=== PATIENT | female | born 1930 | race Caucasian/White ===

== ENCOUNTER → 2016-05-13 | Outpatient (CLI) | payer MEDICARE, BC ==
[2016-05-13 10:28] LABS: MEAN CORPUSCULAR HEMOGLOBIN 31.4 pg (27.0-33.0); MEAN CORPUSCULAR HGB CONC 32.5 g/dl (32.0-36.5); MEAN CORPUSCULAR VOLUME 96.6 fl (80.0-96.0); RED CELL DISTRIBUTION WIDTH 14.6 % (11.5-14.5); WHITE BLOOD COUNT 7.3 K/mm3 (4.0-10.0)
[2016-05-13 10:56] LABS: ALBUMIN 3.6 GM/DL (3.2-5.2); ALBUMIN/GLOBULIN RATIO 0.97 (1.00-1.93); ALKALINE PHOSPHATASE 61 U/L (45-117); ALT/SGPT 22 U/L (12-78); ANION GAP 5 MEQ/L (8-16); AST/SGOT 19 U/L (15-37); BILIRUBIN,TOTAL 0.4 MG/DL (0.2-1.0); BLOOD UREA NITROGEN 21 MG/DL (7-18); CALCIUM LEVEL 9.1 MG/DL (8.8-10.2); CARBON DIOXIDE LEVEL 34 MEQ/L (21-32); CHLORIDE LEVEL 101 MEQ/L (98-107); CREATININE FOR GFR 0.69 MG/DL (0.55-1.02); GLOMERULAR FILTRATION RATE > 60.0 (>32); GLUCOSE, FASTING 97 MG/DL (83-110); POTASSIUM SERUM 4.3 MEQ/L (3.5-5.1); SODIUM LEVEL 140 MEQ/L (136-145); TOTAL PROTEIN 7.3 GM/DL (6.4-8.2)
== END ==
LOC: M LAB 09:55
PROVIDERS: ATTEND Internal Medicine
DX: R53.83 Other fatigue (principal); M05.79 Rheumatoid arthritis with rheumatoid factor of multiple sites without organ or systems involvement; Z79.899 Other long term (current) drug therapy

== ENCOUNTER → 2016-05-13 | Outpatient (CLI) | payer MEDICARE, BC ==
[2016-05-13 10:28] LABS: BASO % 0.6 % (0.0-1.0); EOS # 0.3 K/mm3 (0.0-0.50); EOS % 4.2 % (0.0-3.0); LARGE UNSTAINED CELL # 0.3 K/mm3 (0.0-0.4); LARGE UNSTAINED CELL % 3.4 % (0.0-4.0); MEAN CORPUSCULAR HEMOGLOBIN 30.5 pg (27.0-33.0); MEAN CORPUSCULAR HGB CONC 31.6 g/dl (32.0-36.5); MEAN CORPUSCULAR VOLUME 96.6 fl (80.0-96.0); MONO # 0.6 K/mm3 (0.0-0.8); NEUTROPHILS # 4.2 K/mm3 (1.8-7.7); NEUTROPHILS % 56.9 % (36.0-66.0); PLATELET COUNT, AUTOMATED 222 k/mm3 (150-450); RED CELL DISTRIBUTION WIDTH 14.5 % (11.5-14.5); WHITE BLOOD COUNT 7.3 K/mm3 (4.0-10.0)
[2016-05-13 10:45] LABS: ALBUMIN 3.4 GM/DL (3.2-5.2); ALT/SGPT 22 U/L (12-78); CREATININE FOR GFR 0.71 MG/DL (0.55-1.02); GLOMERULAR FILTRATION RATE > 60.0 (>32)
== END ==
LOC: M LAB 09:59
PROVIDERS: ATTEND Internal Medicine Rheumatology
DX: M05.79 Rheumatoid arthritis with rheumatoid factor of multiple sites without organ or systems involvement (principal); Z79.899 Other long term (current) drug therapy

== ENCOUNTER → 2016-06-14 | Outpatient (CLI) | payer MEDICARE, BC | LOC: M LRY 09:57 | PROVIDERS: ATTEND Nurse Practitioner Family | DX: D64.9 Anemia, unspecified (principal); E53.9 Vitamin B deficiency, unspecified ==

== ENCOUNTER → 2016-07-14 | Outpatient (CLI) | payer MEDICARE, BC ==
[2016-07-14 17:22] LABS: BASO % 0.4 % (0.0-1.0); EOS # 0.4 K/mm3 (0.0-0.50); EOS % 5.5 % (0.0-3.0); LARGE UNSTAINED CELL # 0.2 K/mm3 (0.0-0.4); LYMPH # 2.3 K/mm3 (1.5-4.5); MEAN CORPUSCULAR HGB CONC 32.1 g/dl (32.0-36.5); MEAN CORPUSCULAR VOLUME 99.5 fl (80.0-96.0); MONO # 0.5 K/mm3 (0.0-0.8); NEUTROPHILS # 4.1 K/mm3 (1.8-7.7); PLATELET COUNT, AUTOMATED 233 k/mm3 (150-450); RED CELL DISTRIBUTION WIDTH 15.3 % (11.5-14.5); WHITE BLOOD COUNT 7.5 K/mm3 (4.0-10.0)
[2016-07-14 19:18] LABS: ALBUMIN 3.5 GM/DL (3.2-5.2); ALT/SGPT 25 U/L (12-78); CREATININE FOR GFR 0.79 MG/DL (0.55-1.02); GLOMERULAR FILTRATION RATE > 60.0 (>32)
== END ==
LOC: M LRY 11:50
PROVIDERS: ATTEND Internal Medicine Rheumatology
DX: M05.79 Rheumatoid arthritis with rheumatoid factor of multiple sites without organ or systems involvement (principal); Z79.899 Other long term (current) drug therapy

== ENCOUNTER → 2016-07-30 | Outpatient (CLI) | payer MEDICARE, BC | LOC: M LRY 09:57 | PROVIDERS: ATTEND Internal Medicine Rheumatology | DX: M05.79 Rheumatoid arthritis with rheumatoid factor of multiple sites without organ or systems involvement (principal); Z79.899 Other long term (current) drug therapy ==

== ENCOUNTER → 2016-09-02 | Outpatient (CLI) | payer MEDICARE, BC ==
[2016-09-02 12:01] LABS: BASO % 0.5 % (0.0-1.0); EOS # 0.4 K/mm3 (0.0-0.50); EOS % 4.8 % (0.0-3.0); LARGE UNSTAINED CELL # 0.1 K/mm3 (0.0-0.4); LARGE UNSTAINED CELL % 1.5 % (0.0-4.0); LYMPH # 1.8 K/mm3 (1.5-4.5); LYMPH % 22.1 % (24.0-44.0); MEAN CORPUSCULAR HEMOGLOBIN 32.5 pg (27.0-33.0); MEAN CORPUSCULAR HGB CONC 32.9 g/dl (32.0-36.5); MEAN CORPUSCULAR VOLUME 98.5 fl (80.0-96.0); MONO # 0.5 K/mm3 (0.0-0.8); MONO % 6.5 % (0.0-5.0); NEUTROPHILS % 64.6 % (36.0-66.0); PLATELET COUNT, AUTOMATED 193 k/mm3 (150-450); RED CELL DISTRIBUTION WIDTH 15.1 % (11.5-14.5); WHITE BLOOD COUNT 7.7 K/mm3 (4.0-10.0)
[2016-09-02 12:22] LABS: ALBUMIN 3.4 GM/DL (3.2-5.2); ALT/SGPT 23 U/L (12-78); CREATININE FOR GFR 0.67 MG/DL (0.55-1.02); GLOMERULAR FILTRATION RATE > 60.0 (>32)
== END ==
LOC: M LRY 09:47
PROVIDERS: ATTEND Internal Medicine Rheumatology
DX: M05.79 Rheumatoid arthritis with rheumatoid factor of multiple sites without organ or systems involvement (principal); Z51.81 Encounter for therapeutic drug level monitoring; Z79.899 Other long term (current) drug therapy

== ENCOUNTER → 2016-09-02 | Outpatient (CLI) | payer MEDICARE, BC ==
[2016-09-02 12:38] LABS: VITAMIN B12 LEVEL 865 PG/ML (247-911)
[2016-09-02 12:58] LABS: ALBUMIN 3.2 GM/DL (3.2-5.2); ALBUMIN/GLOBULIN RATIO 0.86 (1.00-1.93); ALKALINE PHOSPHATASE 56 U/L (45-117); ALT/SGPT 22 U/L (12-78); ANION GAP 8 MEQ/L (8-16); AST/SGOT 14 U/L (15-37); BILIRUBIN,TOTAL 0.4 MG/DL (0.2-1.0); BLOOD UREA NITROGEN 23 MG/DL (7-18); CALCIUM LEVEL 9.2 MG/DL (8.8-10.2); CARBON DIOXIDE LEVEL 31 MEQ/L (21-32); CHLORIDE LEVEL 103 MEQ/L (98-107); CHOLESTEROL LEVEL 193 MG/DL (<200); CREATININE FOR GFR 0.67 MG/DL (0.55-1.02); GLOMERULAR FILTRATION RATE > 60.0 (>32); GLUCOSE, FASTING 84 MG/DL (83-110); POTASSIUM SERUM 4.5 MEQ/L (3.5-5.1); SODIUM LEVEL 142 MEQ/L (136-145); TOTAL PROTEIN 6.9 GM/DL (6.4-8.2); TRIGLYCERIDES LEVEL 109 MG/DL (<150)
[2016-09-02 21:41] LABS: MEAN CORPUSCULAR HEMOGLOBIN 31.9 pg (27.0-33.0); MEAN CORPUSCULAR HGB CONC 32.1 g/dl (32.0-36.5); MEAN CORPUSCULAR VOLUME 99.3 fl (80.0-96.0); RED CELL DISTRIBUTION WIDTH 15.1 % (11.5-14.5); WHITE BLOOD COUNT 7.6 K/mm3 (4.0-10.0)
== END ==
LOC: M LRY 09:42
PROVIDERS: ATTEND Nurse Practitioner Family
DX: E55.9 Vitamin D deficiency, unspecified (principal); I10 Essential (primary) hypertension; D50.9 Iron deficiency anemia, unspecified; D51.9 Vitamin B12 deficiency anemia, unspecified; E78.00 Pure hypercholesterolemia, unspecified; M05.79 Rheumatoid arthritis with rheumatoid factor of multiple sites without organ or systems involvement; Z51.81 Encounter for therapeutic drug level monitoring; Z79.899 Other long term (current) drug therapy

== ENCOUNTER → 2016-11-04 | Outpatient (CLI) | payer MEDICARE, BC ==
--- NOTE | 2016-11-04 10:25 | REP ---
PA and lateral chest: Comparison is 2016. The lung resendez are clear. The cardiac size is normal The estuardo, mediastinum, and bony thorax are unremarkable. Impression: Negative PA and lateral chest. Signed by Pacheco Charles MD 11/04/2016 10:16 A
== END ==
LOC: M LRY 09:45
PROVIDERS: ATTEND Nurse Practitioner Family
DX: J18.9 Pneumonia, unspecified organism (principal)

== ENCOUNTER → 2016-11-11 | Outpatient (CLI) | payer MEDICARE, BC ==
[2016-11-11 11:52] LABS: BASO % 0.5 % (0.0-1.0); EOS # 0.4 K/mm3 (0.0-0.50); EOS % 5.4 % (0.0-3.0); LARGE UNSTAINED CELL # 0.2 K/mm3 (0.0-0.4); LYMPH # 1.8 K/mm3 (1.5-4.5); LYMPH % 20.4 % (24.0-44.0); MEAN CORPUSCULAR HEMOGLOBIN 32.2 pg (27.0-33.0); MEAN CORPUSCULAR HGB CONC 32.7 g/dl (32.0-36.5); MEAN CORPUSCULAR VOLUME 98.5 fl (80.0-96.0); MONO # 0.6 K/mm3 (0.0-0.8); MONO % 7.2 % (0.0-5.0); NEUTROPHILS # 5.2 K/mm3 (1.8-7.7); NEUTROPHILS % 64.6 % (36.0-66.0); PLATELET COUNT, AUTOMATED 222 k/mm3 (150-450); RED CELL DISTRIBUTION WIDTH 14.9 % (11.5-14.5); WHITE BLOOD COUNT 8.1 K/mm3 (4.0-10.0)
[2016-11-11 12:21] LABS: ALBUMIN 3.4 GM/DL (3.2-5.2); CREATININE FOR GFR 0.64 MG/DL (0.55-1.02); GLOMERULAR FILTRATION RATE > 60.0 (>32)
== END ==
LOC: M LRY 09:41
PROVIDERS: ATTEND Internal Medicine Rheumatology
DX: M05.79 Rheumatoid arthritis with rheumatoid factor of multiple sites without organ or systems involvement (principal); Z79.899 Other long term (current) drug therapy

== ENCOUNTER → 2017-01-13 | Outpatient (CLI) | payer MEDICARE, BC ==
[2017-01-13 14:25] LABS: BASO # 0.1 10^3/uL (0.0-0.2); BASO % 0.6 % (0.0-1.0); EOS # 0.3 10^3/uL (0.0-0.50); EOS % 3.7 % (0.0-3.0); IMMATURE GRANULOCYTE % 0.5 % (0-0); LYMPH # 1.8 10^3/uL (1.5-4.5); LYMPH % 21.4 % (24.0-44.0); MEAN CORPUSCULAR HEMOGLOBIN 30.7 pg (27.0-33.0); MEAN CORPUSCULAR HGB CONC 31.3 g/dl (32.0-36.5); MEAN CORPUSCULAR VOLUME 97.9 fl (80.0-96.0); MONO # 0.8 10^3/uL (0.0-0.8); MONO % 9.7 % (0.0-5.0); NEUTROPHILS # 5.4 10^3/uL (1.8-7.7); NEUTROPHILS % 64.1 % (36.0-66.0); PLATELET COUNT, AUTOMATED 311 10^3/uL (150-450); RED CELL DISTRIBUTION WIDTH 14.6 % (11.5-14.5); WHITE BLOOD COUNT 8.4 10^3/uL (4.0-10.0)
[2017-01-13 14:47] LABS: ALBUMIN 3.3 GM/DL (3.2-5.2); ALT/SGPT 20 U/L (12-78); CREATININE FOR GFR 0.76 MG/DL (0.55-1.02); GLOMERULAR FILTRATION RATE > 60.0 (>32)
== END ==
LOC: M LRY 09:52
PROVIDERS: ATTEND Internal Medicine Rheumatology
DX: M05.79 Rheumatoid arthritis with rheumatoid factor of multiple sites without organ or systems involvement (principal); E55.9 Vitamin D deficiency, unspecified; Z79.899 Other long term (current) drug therapy

== ENCOUNTER → 2017-02-17 | Outpatient (CLI) | payer MEDICARE, BC ==
[2017-02-17 11:31] LABS: BASO % 0.3 % (0.0-1.0); EOS # 0.2 10^3/uL (0.0-0.50); EOS % 1.3 % (0.0-3.0); IMMATURE GRANULOCYTE % 0.4 % (0-0); LYMPH # 2.1 10^3/uL (1.5-4.5); LYMPH % 18.8 % (24.0-44.0); MEAN CORPUSCULAR HEMOGLOBIN 30.9 pg (27.0-33.0); MEAN CORPUSCULAR HGB CONC 32.1 g/dl (32.0-36.5); MONO # 0.9 10^3/uL (0.0-0.8); MONO % 8.1 % (0.0-5.0); NEUTROPHILS % 71.1 % (36.0-66.0); PLATELET COUNT, AUTOMATED 304 10^3/uL (150-450); RED CELL DISTRIBUTION WIDTH 15.1 % (11.5-14.5); WHITE BLOOD COUNT 11.3 10^3/uL (4.0-10.0)
[2017-02-17 11:55] LABS: ALBUMIN 3.3 GM/DL (3.2-5.2); ALT/SGPT 18 U/L (12-78); CREATININE FOR GFR 0.66 MG/DL (0.55-1.02); GLOMERULAR FILTRATION RATE > 60.0 (>32)
== END ==
LOC: M LRY 09:09
PROVIDERS: ATTEND Internal Medicine Rheumatology
DX: M05.79 Rheumatoid arthritis with rheumatoid factor of multiple sites without organ or systems involvement (principal); Z79.899 Other long term (current) drug therapy

== ENCOUNTER → 2017-02-24 | Outpatient (CLI) | payer MEDICARE, BC ==
[2017-02-24 12:26] LABS: MEAN CORPUSCULAR HEMOGLOBIN 30.8 pg (27.0-33.0); MEAN CORPUSCULAR HGB CONC 32.6 g/dl (32.0-36.5); MEAN CORPUSCULAR VOLUME 94.7 fl (80.0-96.0); PLATELET COUNT, AUTOMATED 266 10^3/uL (150-450); RED CELL DISTRIBUTION WIDTH 15.1 % (11.5-14.5); WHITE BLOOD COUNT 11.3 10^3/uL (4.0-10.0)
[2017-02-24 12:56] LABS: ALBUMIN 3.3 GM/DL (3.2-5.2); ALKALINE PHOSPHATASE 67 U/L (45-117); ALT/SGPT 21 U/L (12-78); ANION GAP 7 MEQ/L (8-16); AST/SGOT 13 U/L (7-37); BILIRUBIN,TOTAL 0.4 MG/DL (0.2-1.0); BLOOD UREA NITROGEN 24 MG/DL (7-18); CALCIUM LEVEL 8.9 MG/DL (8.8-10.2); CARBON DIOXIDE LEVEL 29 MEQ/L (21-32); CHLORIDE LEVEL 104 MEQ/L (98-107); CHOLESTEROL LEVEL 200 MG/DL (<200); CREATININE FOR GFR 0.69 MG/DL (0.55-1.02); FREE T4 1.04 NG/DL (0.76-1.46); GLOMERULAR FILTRATION RATE > 60.0 (>32); GLUCOSE, FASTING 108 MG/DL (83-110); POTASSIUM SERUM 4.2 MEQ/L (3.5-5.1); SODIUM LEVEL 140 MEQ/L (136-145); TOTAL PROTEIN 7.4 GM/DL (6.4-8.2); TRIGLYCERIDES LEVEL 66 MG/DL (<150)
== END ==
LOC: M LRY 09:13
PROVIDERS: ATTEND Internal Medicine Cardiovascular Disease
DX: E78.5 Hyperlipidemia, unspecified (principal); I10 Essential (primary) hypertension; E03.9 Hypothyroidism, unspecified; R73.9 Hyperglycemia, unspecified; E55.9 Vitamin D deficiency, unspecified

== ENCOUNTER → 2017-04-13 | Outpatient (CLI) | payer MEDICARE, BC ==
[2017-04-13 12:00] LABS: BASO # 0.1 10^3/uL (0.0-0.2); BASO % 0.6 % (0.0-1.0); EOS # 0.2 10^3/uL (0.0-0.50); EOS % 2.5 % (0.0-3.0); HEMATOCRIT 38.6 % (36.0-47.0); HEMOGLOBIN 12.3 g/dl (12.0-16.0); IMMATURE GRANULOCYTE % 0.4 % (0-0); LYMPH # 1.8 10^3/uL (1.5-4.5); LYMPH % 20.3 % (24.0-44.0); MEAN CORPUSCULAR HEMOGLOBIN 30.6 pg (27.0-33.0); MEAN CORPUSCULAR HGB CONC 31.9 g/dl (32.0-36.5); MONO # 0.8 10^3/uL (0.0-0.8); MONO % 8.6 % (0.0-5.0); NEUTROPHILS # 6.1 10^3/uL (1.8-7.7); NEUTROPHILS % 67.6 % (36.0-66.0); PLATELET COUNT, AUTOMATED 237 10^3/uL (150-450); RED BLOOD COUNT 4.02 10^6/uL (4.00-5.40); RED CELL DISTRIBUTION WIDTH 15.7 % (11.5-14.5)
[2017-04-13 12:07] LABS: ALBUMIN 3.4 GM/DL (3.2-5.2); ALT/SGPT 22 U/L (12-78); CREATININE FOR GFR 0.68 MG/DL (0.55-1.02); GLOMERULAR FILTRATION RATE > 60.0 (>32)
== END ==
LOC: M LRY 09:18
DX: M05.79 Rheumatoid arthritis with rheumatoid factor of multiple sites without organ or systems involvement (principal); Z79.899 Other long term (current) drug therapy
CPT/HCPCS: 84460

== ENCOUNTER → 2017-05-26 | Outpatient (CLI) | payer MEDICARE, BC ==
[2017-05-26 12:11] LABS: BASO % 0.4 % (0.0-1.0); EOS # 0.3 10^3/uL (0.0-0.50); EOS % 2.6 % (0.0-3.0); HEMATOCRIT 37.4 % (36.0-47.0); HEMOGLOBIN 12.1 g/dl (12.0-16.0); IMMATURE GRANULOCYTE % 0.4 % (0-3.0); LYMPH # 1.8 10^3/uL (1.5-4.5); LYMPH % 18.3 % (24.0-44.0); MEAN CORPUSCULAR HEMOGLOBIN 31.7 pg (27.0-33.0); MEAN CORPUSCULAR HGB CONC 32.4 g/dl (32.0-36.5); MEAN CORPUSCULAR VOLUME 97.9 fl (80.0-96.0); MONO # 0.7 10^3/uL (0.0-0.8); MONO % 7.1 % (0.0-5.0); NEUTROPHILS # 6.9 10^3/uL (1.8-7.7); NEUTROPHILS % 71.2 % (36.0-66.0); PLATELET COUNT, AUTOMATED 237 10^3/uL (150-450); RED BLOOD COUNT 3.82 10^6/uL (4.00-5.40); WHITE BLOOD COUNT 9.7 10^3/uL (4.0-10.0)
[2017-05-26 12:12] LABS: ALBUMIN 3.3 GM/DL (3.2-5.2); ALT/SGPT 20 U/L (12-78); CREATININE FOR GFR 0.69 MG/DL (0.55-1.30); GLOMERULAR FILTRATION RATE > 60.0 (>32)
== END ==
LOC: M LRY 09:05
DX: M05.79 Rheumatoid arthritis with rheumatoid factor of multiple sites without organ or systems involvement (principal); Z79.899 Other long term (current) drug therapy
CPT/HCPCS: 84460

== ENCOUNTER → 2017-08-11 | Outpatient (CLI) | payer MEDICARE, BC ==
[2017-08-11 11:19] LABS: BASO % 0.5 % (0.0-1.0); EOS # 0.2 10^3/uL (0.0-0.50); EOS % 2.9 % (0.0-3.0); HEMATOCRIT 37.8 % (36.0-47.0); HEMOGLOBIN 12.3 g/dl (12.0-15.5); IMMATURE GRANULOCYTE % 0.5 % (0-3.0); LYMPH # 1.5 10^3/uL (1.5-4.5); LYMPH % 19.2 % (24.0-44.0); MEAN CORPUSCULAR HEMOGLOBIN 31.6 pg (27.0-33.0); MEAN CORPUSCULAR HGB CONC 32.5 g/dl (32.0-36.5); MEAN CORPUSCULAR VOLUME 97.2 fl (80.0-96.0); MONO % 12.5 % (0.0-5.0); NEUTROPHILS # 5.2 10^3/uL (1.8-7.7); NEUTROPHILS % 64.4 % (36.0-66.0); PLATELET COUNT, AUTOMATED 225 10^3/uL (150-450); RED BLOOD COUNT 3.89 10^6/uL (4.00-5.40); RED CELL DISTRIBUTION WIDTH 14.8 % (11.5-14.5)
[2017-08-11 11:43] LABS: ALBUMIN 3.4 GM/DL (3.2-5.2); ALBUMIN/GLOBULIN RATIO 0.85 (1.00-1.93); ALKALINE PHOSPHATASE 71 U/L (45-117); ALT/SGPT 23 U/L (12-78); ANION GAP 5 MEQ/L (8-16); AST/SGOT 22 U/L (7-37); BILIRUBIN,TOTAL 0.4 MG/DL (0.2-1.0); BLOOD UREA NITROGEN 26 MG/DL (7-18); C REACTIVE PROTEIN QUANTITATIV 0.48 MG/DL (0.00-0.30); CALCIUM LEVEL 9.1 MG/DL (8.8-10.2); CARBON DIOXIDE LEVEL 30 MEQ/L (21-32); CHLORIDE LEVEL 103 MEQ/L (98-107); CREATININE FOR GFR 0.75 MG/DL (0.55-1.30); GLOMERULAR FILTRATION RATE > 60.0 (>32); GLUCOSE, FASTING 105 MG/DL (70-100); POTASSIUM SERUM 4.4 MEQ/L (3.5-5.1); SODIUM LEVEL 138 MEQ/L (136-145); TOTAL PROTEIN 7.4 GM/DL (6.4-8.2)
== END ==
LOC: M LRY 09:17
DX: M05.79 Rheumatoid arthritis with rheumatoid factor of multiple sites without organ or systems involvement (principal)
CPT/HCPCS: 80053

== ENCOUNTER 2017-10-21 17:31 | Emergency (ER) | payer MEDICARE, BC ==
[2017-10-21 18:25] LABS: BASO % 0.3 % (0.0-1.0); EOS # 0.2 10^3/uL (0.0-0.50); HEMATOCRIT 36.5 % (36.0-47.0); HEMOGLOBIN 11.5 g/dl (12.0-15.5); IMMATURE GRANULOCYTE % 0.4 % (0-3.0); LYMPH # 1.7 10^3/uL (1.5-4.5); LYMPH % 18.4 % (24.0-44.0); MEAN CORPUSCULAR HEMOGLOBIN 31.1 pg (27.0-33.0); MEAN CORPUSCULAR HGB CONC 31.5 g/dl (32.0-36.5); MEAN CORPUSCULAR VOLUME 98.6 fl (80.0-96.0); MONO # 0.8 10^3/uL (0.0-0.8); MONO % 8.2 % (0.0-5.0); NEUTROPHILS # 6.7 10^3/uL (1.8-7.7); NEUTROPHILS % 70.7 % (36.0-66.0); PLATELET COUNT, AUTOMATED 243 10^3/uL (150-450); RED CELL DISTRIBUTION WIDTH 15.5 % (11.5-14.5); WHITE BLOOD COUNT 9.5 10^3/uL (4.0-10.0)
[2017-10-21 18:37] LABS: ANION GAP 7 MEQ/L (8-16); BLOOD UREA NITROGEN 23 MG/DL (7-18); CALCIUM LEVEL 8.6 MG/DL (8.8-10.2); CARBON DIOXIDE LEVEL 31 MEQ/L (21-32); CHLORIDE LEVEL 105 MEQ/L (98-107); CPK CREATINE PHOSPHOKINASE 61 U/L (26-192); CREATININE FOR GFR 0.92 MG/DL (0.55-1.30); GLOMERULAR FILTRATION RATE > 60.0 (>32); GLUCOSE, FASTING 109 MG/DL (70-100); POTASSIUM SERUM 4.3 MEQ/L (3.5-5.1); SODIUM LEVEL 143 MEQ/L (136-145); TROPONIN I < 0.02 NG/ML (< 0.10)
[2017-10-21 18:43] LABS: CK-MB VALUE MASS 1.5 NG/ML (<3.6); MB/CK RELATIVE INDEX 2.45 (< OR =4)
== END 2017-10-21 21:42 | disposition home or self-care (01) ==
LOC: M ED 17:31
DX: R42 Dizziness and giddiness (principal); I48.91 Unspecified atrial fibrillation; I51.7 Cardiomegaly; G31.9 Degenerative disease of nervous system, unspecified; E11.9 Type 2 diabetes mellitus without complications; I10 Essential (primary) hypertension; M06.9 Rheumatoid arthritis, unspecified; Z87.891 Personal history of nicotine dependence; Z79.01 Long term (current) use of anticoagulants; Z79.899 Other long term (current) drug therapy
CPT/HCPCS: 71045

== ENCOUNTER → 2017-12-02 | Outpatient (REF) | payer MEDICARE, BC ==
[2017-12-02 15:13] LABS: C REACTIVE PROTEIN QUANTITATIV 0.38 MG/DL (0.00-0.30)
== END ==
LOC: M LAB REF 13:14
DX: M06.9 Rheumatoid arthritis, unspecified (principal)
CPT/HCPCS: 86140

== ENCOUNTER → 2017-12-28 | Outpatient (REF) | payer MEDICARE, BC ==
[2017-12-28 18:35] LABS: BASO # 0.1 10^3/uL (0.0-0.2); BASO % 0.7 % (0.0-1.0); EOS # 0.3 10^3/uL (0.0-0.50); EOS % 2.9 % (0.0-3.0); HEMATOCRIT 38.3 % (36.0-47.0); IMMATURE GRANULOCYTE % 0.3 % (0-3.0); LYMPH # 2.4 10^3/uL (1.5-4.5); LYMPH % 26.4 % (24.0-44.0); MEAN CORPUSCULAR HEMOGLOBIN 30.2 pg (27.0-33.0); MEAN CORPUSCULAR HGB CONC 31.3 g/dl (32.0-36.5); MEAN CORPUSCULAR VOLUME 96.2 fl (80.0-96.0); MONO # 0.8 10^3/uL (0.0-0.8); MONO % 8.9 % (0.0-5.0); NEUTROPHILS # 5.5 10^3/uL (1.8-7.7); NEUTROPHILS % 60.8 % (36.0-66.0); PLATELET COUNT, AUTOMATED 247 10^3/uL (150-450); RED BLOOD COUNT 3.98 10^6/uL (4.00-5.40); RED CELL DISTRIBUTION WIDTH 15.5 % (11.5-14.5); WHITE BLOOD COUNT 9.1 10^3/uL (4.0-10.0)
[2017-12-28 18:53] LABS: ALBUMIN 3.3 GM/DL (3.2-5.2); ALBUMIN/GLOBULIN RATIO 0.87 (1.00-1.93); ALKALINE PHOSPHATASE 60 U/L (45-117); ALT/SGPT 21 U/L (12-78); ANION GAP 7 MEQ/L (8-16); AST/SGOT 18 U/L (7-37); BILIRUBIN,TOTAL 0.3 MG/DL (0.2-1.0); BLOOD UREA NITROGEN 23 MG/DL (7-18); C REACTIVE PROTEIN QUANTITATIV < 0.30 MG/DL (0.00-0.30); CALCIUM LEVEL 8.7 MG/DL (8.8-10.2); CARBON DIOXIDE LEVEL 30 MEQ/L (21-32); CHLORIDE LEVEL 105 MEQ/L (98-107); CREATININE FOR GFR 0.92 MG/DL (0.55-1.30); GLOMERULAR FILTRATION RATE > 60.0 (>32); GLUCOSE, FASTING 107 MG/DL (70-100); HEPATITIS B SURFACE ANTIBODY NEGATIVE (POSITIVE); NT-PRO BNP 2360 PG/ML (<450); POTASSIUM SERUM 4.5 MEQ/L (3.5-5.1); RHEUMATOID FACTOR QUANT 52.3 IU/ML (<15.0); SODIUM LEVEL 142 MEQ/L (136-145); TOTAL PROTEIN 7.1 GM/DL (6.4-8.2)
[2017-12-28 18:59] LABS: HEPATITIS B SURFACE ANTIGEN NEGATIVE (NEGATIVE)
[2017-12-28 19:28] LABS: HEPATITIS C VIRUS ABY INDEX < 0.0 INDEX (<0.8)
[2017-12-28 19:56] LABS: ERYTHROCYTE SEDIMENTATION RATE 36 mm/hr (0-42)
[2017-12-31 00:07] LABS: CYCLIC CITRULLINATED PEPTIDE > 250 units (0-19)
[2017-12-31 00:07] LABS: HEPATITIS B CORE ANTIBODY IGG Negative (Negative)
[2018-01-02 08:42] LABS: QUANTIFERON GOLD TB Negative (Negative); TB Test (QFT) Antigen 0.13 IU/mL (.); TB Test (QFT) Antigen Minus Ni 0.05 IU/mL (.); TB Test (QFT) Mitogen 7.54 IU/mL (.); TB Test (QFT) Nil 0.08 IU/mL (.)
== END ==
LOC: M SFHCLERA 10:08
DX: M06.9 Rheumatoid arthritis, unspecified (principal); Z79.899 Other long term (current) drug therapy
CPT/HCPCS: 84443

== ENCOUNTER 2017-12-29 11:44 | Inpatient (IN) | payer MEDICARE, BC ==
[2017-12-29 12:25] LABS: BASO # 0.1 10^3/uL (0.0-0.2); BASO % 0.3 % (0.0-1.0); EOS # 0.2 10^3/uL (0.0-0.50); EOS % 1.3 % (0.0-3.0); HEMATOCRIT 39.7 % (36.0-47.0); HEMOGLOBIN 12.7 g/dl (12.0-15.5); IMMATURE GRANULOCYTE % 0.3 % (0-3.0); LYMPH # 1.6 10^3/uL (1.5-4.5); LYMPH % 10.3 % (24.0-44.0); MEAN CORPUSCULAR HEMOGLOBIN 30.2 pg (27.0-33.0); MEAN CORPUSCULAR VOLUME 94.3 fl (80.0-96.0); MONO # 1.2 10^3/uL (0.0-0.8); MONO % 7.5 % (0.0-5.0); NEUTROPHILS # 12.4 10^3/uL (1.8-7.7); NEUTROPHILS % 80.3 % (36.0-66.0); PLATELET COUNT, AUTOMATED 246 10^3/uL (150-450); RED BLOOD COUNT 4.21 10^6/uL (4.00-5.40); RED CELL DISTRIBUTION WIDTH 15.6 % (11.5-14.5); WHITE BLOOD COUNT 15.4 10^3/uL (4.0-10.0)
[2017-12-29 12:27] LABS: KETONE, URINE AUTO RFX NEGATIVE (NEGATIVE); LEUKOCYTE ESTERASE UR AUTO RFX NEGATIVE (NEGATIVE); MUCUS, URINE RFX SMALL (NEGATIVE); NITRITE, URINE AUTO RFX NEGATIVE (NEGATIVE); RBC, URINE AUTO RFX 0 /HPF (0-3); SPECIFIC GRAVITY UR AUTO RFX 1.005 (1.002-1.035); SQUAM EPITHELIAL CELL UR AURFX 1 /HPF (0-6); WBC, URINE AUTO RFX 0 /HPF (0-3)
[2017-12-29 12:53] LABS: INR 1.26
[2017-12-29 12:55] LABS: BEDSIDE GLUCOSE 122 MG/DL (83-110)
[2017-12-29 13:03] LABS: ALBUMIN 3.5 GM/DL (3.2-5.2); ALBUMIN/GLOBULIN RATIO 0.76 (1.00-1.93); ALKALINE PHOSPHATASE 70 U/L (45-117); ALT/SGPT 24 U/L (12-78); ANION GAP 6 MEQ/L (8-16); AST/SGOT 20 U/L (7-37); BILIRUBIN,DIRECT 0.1 MG/DL (0.0-0.2); BILIRUBIN,TOTAL 0.7 MG/DL (0.2-1.0); BLOOD UREA NITROGEN 23 MG/DL (7-18); CALCIUM LEVEL 9.1 MG/DL (8.8-10.2); CARBON DIOXIDE LEVEL 34 MEQ/L (21-32); CHLORIDE LEVEL 101 MEQ/L (98-107); CREATININE FOR GFR 0.98 MG/DL (0.55-1.30); GLOMERULAR FILTRATION RATE 57.3 (>32); GLUCOSE, FASTING 116 MG/DL (70-100); SODIUM LEVEL 141 MEQ/L (136-145); TOTAL PROTEIN 8.1 GM/DL (6.4-8.2)
[2017-12-29] MEDS ORDERED: BISACODYL 5 MG TAB PO (14:15)
[2017-12-29] MEDS ORDERED: ALBUTEROL 90 MCG/ACT 8GM HFA INHALER INH (14:45)
[2017-12-29] MEDS ORDERED: hydrOXYzine 50 MG TAB PO (14:45)
[2017-12-29] MEDS: SENOKOT S TAB PO (17:12)
[2017-12-29 17:38] LABS: INFLUENZA A AMPLIFICATION NEGATIVE (NEGATIVE); INFLUENZA B AMPLIFICATION NEGATIVE (NEGATIVE)
[2017-12-29 20:21] LABS: CHOLESTEROL LEVEL 221 MG/DL (<200); CHOLESTEROL RISK RATIO 3.507 (<5); HDL CHOLESTEROL 63 MG/DL (>40); LDL CHOLESTEROL 124 MG/DL (<100); NON-HDL-C 158 MG/DL; TRIGLYCERIDES LEVEL 172 MG/DL (<150)
[2017-12-29] MEDS: APIXABAN 5 MG TAB (ELIQUIS) PO (20:24)
[2017-12-29] MEDS: VITAMIN D 1,000 INTERNATIONAL UNITS TABLET PO (20:24)
[2017-12-29] MEDS: ATORVASTATIN 20 MG TAB PO (20:25)
[2017-12-29] MEDS: ONDANSETRON 4MG/2ML VIAL (J2405) IV (22:02)
[2017-12-29] MEDS: AUGMENTIN 875 MG TAB PO (23:30)
[2017-12-30] MEDS: ASPIRIN 81 MG CHEW TABLET PO (01:05)
[2017-12-30] MEDS: BUDESONIDE 0.5 MG/2 ML INHALATION SUSPENSION INH ×3 (01:20→20:23)
[2017-12-30] MEDS: FORMOTEROL FUMARATE 20 MCG/2 ML INHALATION SOLUTION (PERFOROMIST) INH ×3 (01:20→20:23)
[2017-12-30] MEDS: SODIUM CHLORIDE HYPERTONIC 3% 15ML NEB SOL INH ×3 (01:21→15:21)
[2017-12-30 06:07] LABS: ANION GAP 7 MEQ/L (8-16); BLOOD UREA NITROGEN 27 MG/DL (7-18); CALCIUM LEVEL 8.6 MG/DL (8.8-10.2); CARBON DIOXIDE LEVEL 31 MEQ/L (21-32); CHLORIDE LEVEL 103 MEQ/L (98-107); CREATININE FOR GFR 1.18 MG/DL (0.55-1.30); GLOMERULAR FILTRATION RATE 46.2 (>32); GLUCOSE, FASTING 113 MG/DL (70-100); POTASSIUM SERUM 3.7 MEQ/L (3.5-5.1); SODIUM LEVEL 141 MEQ/L (136-145)
[2017-12-30 06:16] LABS: BASO % 0.3 % (0.0-1.0); EOS # 0.2 10^3/uL (0.0-0.50); EOS % 1.5 % (0.0-3.0); HEMATOCRIT 34.9 % (36.0-47.0); HEMOGLOBIN 11.1 g/dl (12.0-15.5); IMMATURE GRANULOCYTE % 0.3 % (0-3.0); LYMPH # 1.2 10^3/uL (1.5-4.5); LYMPH % 10.9 % (24.0-44.0); MEAN CORPUSCULAR HEMOGLOBIN 29.8 pg (27.0-33.0); MEAN CORPUSCULAR HGB CONC 31.8 g/dl (32.0-36.5); MEAN CORPUSCULAR VOLUME 93.6 fl (80.0-96.0); MONO # 0.9 10^3/uL (0.0-0.8); MONO % 8.7 % (0.0-5.0); NEUTROPHILS # 8.3 10^3/uL (1.8-7.7); NEUTROPHILS % 78.3 % (36.0-66.0); PLATELET COUNT, AUTOMATED 190 10^3/uL (150-450); RED BLOOD COUNT 3.73 10^6/uL (4.00-5.40); RED CELL DISTRIBUTION WIDTH 15.7 % (11.5-14.5); WHITE BLOOD COUNT 10.5 10^3/uL (4.0-10.0)
[2017-12-30] MEDS: ALBUTEROL SULFATE 2.5 MG/0.5 ML INH NEB SOLN NEB ×3 (08:00→15:21)
[2017-12-30] MEDS: AUGMENTIN 875 MG TAB PO ×2 (09:00→21:00)
[2017-12-30] MEDS: ASPIRIN 81 MG ENTERIC TAB PO (09:03)
[2017-12-30] MEDS: CANDESARTAN 16 MG TABLET PO (09:04)
[2017-12-30] MEDS: FEXOFENADINE 60 MG TAB PO (09:04)
[2017-12-30] MEDS: BISOPROLOL FUMARATE 10 MG TAB PO (09:04)
[2017-12-30] MEDS: MULTIVITAMINS/MINERALS THERAP 1 TAB PO (09:05)
[2017-12-30] MEDS: ATORVASTATIN 20 MG TAB PO (09:05)
[2017-12-30] MEDS: MONTELUKAST 10 MG TAB PO (09:05)
[2017-12-30] MEDS: PARoxetine 20 MG TAB PO (09:05)
[2017-12-30] MEDS: APIXABAN 5 MG TAB (ELIQUIS) PO ×2 (09:05→21:02)
[2017-12-30] MEDS: FUROSEMIDE 20 MG TAB PO (09:05)
[2017-12-30] MEDS: FOLIC ACID 1 MG TAB PO (09:06)
[2017-12-30] MEDS: POTASSIUM CHLORIDE 10 MEQ SR TABLET PO (09:06)
[2017-12-30] MEDS: OMEPRAZOLE 20 MG CAP PO (09:06)
[2017-12-30] MEDS: FLUBLOK(EGG FREE)(QUAD)INFLUENZA VACC 0.5ML SYRINGE (90682)18YRS&OLDER IM (09:09)
[2017-12-30] MEDS: predniSONE 20 MG TAB PO ×2 (12:31→21:03)
[2017-12-30] MEDS: VITAMIN D 1,000 INTERNATIONAL UNITS TABLET PO (21:03)
[2017-12-31 06:24] LABS: HEMATOCRIT 36.5 % (36.0-47.0); HEMOGLOBIN 11.5 g/dl (12.0-15.5); IMMATURE GRANULOCYTE % 0.6 % (0-3.0); MEAN CORPUSCULAR HEMOGLOBIN 29.8 pg (27.0-33.0); MEAN CORPUSCULAR HGB CONC 31.5 g/dl (32.0-36.5); MEAN CORPUSCULAR VOLUME 94.6 fl (80.0-96.0); MONO # 0.2 10^3/uL (0.0-0.8); MONO % 2.3 % (0.0-5.0); NEUTROPHILS # 5.3 10^3/uL (1.8-7.7); NEUTROPHILS % 82.1 % (36.0-66.0); PLATELET COUNT, AUTOMATED 200 10^3/uL (150-450); RED BLOOD COUNT 3.86 10^6/uL (4.00-5.40); RED CELL DISTRIBUTION WIDTH 15.6 % (11.5-14.5); WHITE BLOOD COUNT 6.4 10^3/uL (4.0-10.0)
[2017-12-31 06:48] LABS: ANION GAP 8 MEQ/L (8-16); BLOOD UREA NITROGEN 45 MG/DL (7-18); CALCIUM LEVEL 8.2 MG/DL (8.8-10.2); CARBON DIOXIDE LEVEL 29 MEQ/L (21-32); CHLORIDE LEVEL 100 MEQ/L (98-107); CREATININE FOR GFR 1.59 MG/DL (0.55-1.30); GLOMERULAR FILTRATION RATE 32.8 (>32); GLUCOSE, FASTING 179 MG/DL (70-100); POTASSIUM SERUM 4.2 MEQ/L (3.5-5.1); SODIUM LEVEL 137 MEQ/L (136-145)
[2017-12-31] MEDS: ALBUTEROL SULFATE 2.5 MG/0.5 ML INH NEB SOLN NEB ×3 (07:12→15:09)
[2017-12-31] MEDS: SODIUM CHLORIDE HYPERTONIC 3% 15ML NEB SOL INH ×3 (07:13→15:09)
[2017-12-31] MEDS: BUDESONIDE 0.5 MG/2 ML INHALATION SUSPENSION INH ×2 (07:13→20:21)
[2017-12-31] MEDS: FORMOTEROL FUMARATE 20 MCG/2 ML INHALATION SOLUTION (PERFOROMIST) INH ×2 (07:13→20:21)
[2017-12-31] MEDS: BISOPROLOL FUMARATE 10 MG TAB PO (08:56)
[2017-12-31] MEDS: MONTELUKAST 10 MG TAB PO (08:57)
[2017-12-31] MEDS: FEXOFENADINE 60 MG TAB PO (08:57)
[2017-12-31] MEDS: ATORVASTATIN 20 MG TAB PO (08:57)
[2017-12-31] MEDS: PARoxetine 20 MG TAB PO (08:57)
[2017-12-31] MEDS: predniSONE 20 MG TAB PO ×2 (08:57→21:17)
[2017-12-31] MEDS: MULTIVITAMINS/MINERALS THERAP 1 TAB PO (08:57)
[2017-12-31] MEDS: CANDESARTAN 16 MG TABLET PO (08:57)
[2017-12-31] MEDS: AUGMENTIN 875 MG TAB PO ×2 (08:58→21:00)
[2017-12-31] MEDS: POTASSIUM CHLORIDE 10 MEQ SR TABLET PO (08:58)
[2017-12-31] MEDS: FUROSEMIDE 20 MG TAB PO (08:58)
[2017-12-31] MEDS: ASPIRIN 81 MG ENTERIC TAB PO (08:58)
[2017-12-31] MEDS: OMEPRAZOLE 20 MG CAP PO (08:58)
[2017-12-31] MEDS: APIXABAN 5 MG TAB (ELIQUIS) PO ×2 (08:58→21:17)
[2017-12-31] MEDS: FOLIC ACID 1 MG TAB PO (08:58)
[2017-12-31] MEDS: DOCUSATE SODIUM 100 MG CAP PO (21:16)
[2017-12-31] MEDS: VITAMIN D 1,000 INTERNATIONAL UNITS TABLET PO (21:17)
[2018-01-01] MEDS: MIRALAX *UNIT DOSE* 17GM PACKET PO (04:10)
[2018-01-01 05:57] LABS: BASO % 0.1 % (0.0-1.0); HEMATOCRIT 36.9 % (36.0-47.0); HEMOGLOBIN 11.8 g/dl (12.0-15.5); IMMATURE GRANULOCYTE % 0.5 % (0-3.0); LYMPH # 1.1 10^3/uL (1.5-4.5); LYMPH % 9.6 % (24.0-44.0); MEAN CORPUSCULAR HEMOGLOBIN 30.3 pg (27.0-33.0); MEAN CORPUSCULAR VOLUME 94.6 fl (80.0-96.0); MONO # 0.2 10^3/uL (0.0-0.8); MONO % 1.9 % (0.0-5.0); NEUTROPHILS # 10.3 10^3/uL (1.8-7.7); NEUTROPHILS % 87.9 % (36.0-66.0); PLATELET COUNT, AUTOMATED 201 10^3/uL (150-450); RED CELL DISTRIBUTION WIDTH 15.4 % (11.5-14.5); WHITE BLOOD COUNT 11.7 10^3/uL (4.0-10.0)
[2018-01-01 06:15] LABS: ANION GAP 8 MEQ/L (8-16); BLOOD UREA NITROGEN 49 MG/DL (7-18); CALCIUM LEVEL 8.7 MG/DL (8.8-10.2); CARBON DIOXIDE LEVEL 27 MEQ/L (21-32); CHLORIDE LEVEL 105 MEQ/L (98-107); CREATININE FOR GFR 1.06 MG/DL (0.55-1.30); GLOMERULAR FILTRATION RATE 52.3 (>32); GLUCOSE, FASTING 162 MG/DL (70-100); POTASSIUM SERUM 4.6 MEQ/L (3.5-5.1); SODIUM LEVEL 140 MEQ/L (136-145)
[2018-01-01] MEDS: FORMOTEROL FUMARATE 20 MCG/2 ML INHALATION SOLUTION (PERFOROMIST) INH ×2 (07:13→20:26)
[2018-01-01] MEDS: BUDESONIDE 0.5 MG/2 ML INHALATION SUSPENSION INH ×2 (07:13→20:26)
[2018-01-01] MEDS: SODIUM CHLORIDE HYPERTONIC 3% 15ML NEB SOL INH ×3 (07:13→15:14)
[2018-01-01] MEDS: ALBUTEROL SULFATE 2.5 MG/0.5 ML INH NEB SOLN NEB ×3 (07:14→15:13)
[2018-01-01] MEDS: OMEPRAZOLE 20 MG CAP PO (08:34)
[2018-01-01] MEDS: FEXOFENADINE 60 MG TAB PO (08:34)
[2018-01-01] MEDS: AUGMENTIN 875 MG TAB PO ×2 (08:35→20:29)
[2018-01-01] MEDS: ASPIRIN 81 MG ENTERIC TAB PO (08:35)
[2018-01-01] MEDS: PARoxetine 20 MG TAB PO (08:35)
[2018-01-01] MEDS: FOLIC ACID 1 MG TAB PO (08:35)
[2018-01-01] MEDS: BISOPROLOL FUMARATE 10 MG TAB PO (08:35)
[2018-01-01] MEDS: POTASSIUM CHLORIDE 10 MEQ SR TABLET PO (08:35)
[2018-01-01] MEDS: APIXABAN 5 MG TAB (ELIQUIS) PO ×2 (08:35→20:29)
[2018-01-01] MEDS: predniSONE 20 MG TAB PO ×2 (08:36→20:30)
[2018-01-01] MEDS: ATORVASTATIN 20 MG TAB PO (08:36)
[2018-01-01] MEDS: MULTIVITAMINS/MINERALS THERAP 1 TAB PO (08:36)
[2018-01-01] MEDS: DOCUSATE SODIUM 100 MG CAP PO ×2 (08:36→20:29)
[2018-01-01] MEDS: MONTELUKAST 10 MG TAB PO (08:36)
[2018-01-01] MEDS ORDERED: SLF 3 ML SYR IV (09:00)
[2018-01-01] MEDS: FUROSEMIDE 40 MG TAB PO (11:38)
[2018-01-01] MEDS: SLF 3 ML SYR IV ×2 (12:11→21:30)
[2018-01-01] MEDS: VITAMIN D 1,000 INTERNATIONAL UNITS TABLET PO (20:30)
[2018-01-02] MEDS: ALBUTEROL SULFATE 2.5 MG/0.5 ML INH NEB SOLN NEB ×2 (00:41→14:50)
[2018-01-02] MEDS: SODIUM CHLORIDE HYPERTONIC 3% 15ML NEB SOL INH ×2 (00:41→08:07)
[2018-01-02] MEDS: SLF 3 ML SYR IV ×3 (04:49→21:12)
[2018-01-02] MEDS: BISOPROLOL FUMARATE 10 MG TAB PO (04:50)
[2018-01-02 05:50] LABS: BASO % 0.1 % (0.0-1.0); HEMATOCRIT 35.4 % (36.0-47.0); HEMOGLOBIN 11.4 g/dl (12.0-15.5); IMMATURE GRANULOCYTE % 0.8 % (0-3.0); LYMPH # 1.1 10^3/uL (1.5-4.5); LYMPH % 9.6 % (24.0-44.0); MEAN CORPUSCULAR HEMOGLOBIN 29.8 pg (27.0-33.0); MEAN CORPUSCULAR HGB CONC 32.2 g/dl (32.0-36.5); MEAN CORPUSCULAR VOLUME 92.4 fl (80.0-96.0); MONO # 0.2 10^3/uL (0.0-0.8); MONO % 1.8 % (0.0-5.0); NEUTROPHILS # 10.3 10^3/uL (1.8-7.7); NEUTROPHILS % 87.7 % (36.0-66.0); PLATELET COUNT, AUTOMATED 224 10^3/uL (150-450); RED BLOOD COUNT 3.83 10^6/uL (4.00-5.40); RED CELL DISTRIBUTION WIDTH 15.5 % (11.5-14.5); WHITE BLOOD COUNT 11.7 10^3/uL (4.0-10.0)
[2018-01-02 06:17] LABS: ANION GAP 7 MEQ/L (8-16); BLOOD UREA NITROGEN 44 MG/DL (7-18); CALCIUM LEVEL 8.3 MG/DL (8.8-10.2); CARBON DIOXIDE LEVEL 29 MEQ/L (21-32); CHLORIDE LEVEL 104 MEQ/L (98-107); GLUCOSE, FASTING 169 MG/DL (70-100); POTASSIUM SERUM 4.5 MEQ/L (3.5-5.1); SODIUM LEVEL 140 MEQ/L (136-145)
[2018-01-02 07:52] LABS: MAGNESIUM LEVEL 2.1 MG/DL (1.8-2.4)
[2018-01-02] MEDS: BUDESONIDE 0.5 MG/2 ML INHALATION SUSPENSION INH ×2 (08:07→21:44)
[2018-01-02] MEDS: FORMOTEROL FUMARATE 20 MCG/2 ML INHALATION SOLUTION (PERFOROMIST) INH ×2 (08:07→21:44)
[2018-01-02] MEDS: predniSONE 20 MG TAB PO (08:49)
[2018-01-02] MEDS: FEXOFENADINE 60 MG TAB PO (08:49)
[2018-01-02] MEDS: amLODIPine 5 MG TAB PO (08:50)
[2018-01-02] MEDS: OMEPRAZOLE 20 MG CAP PO (08:50)
[2018-01-02] MEDS: ASPIRIN 81 MG ENTERIC TAB PO (08:50)
[2018-01-02] MEDS: PARoxetine 20 MG TAB PO (08:50)
[2018-01-02] MEDS: DOCUSATE SODIUM 100 MG CAP PO ×2 (08:50→21:00)
[2018-01-02] MEDS: ATORVASTATIN 20 MG TAB PO (08:50)
[2018-01-02] MEDS: MULTIVITAMINS/MINERALS THERAP 1 TAB PO (08:51)
[2018-01-02] MEDS: FOLIC ACID 1 MG TAB PO (08:51)
[2018-01-02] MEDS: MONTELUKAST 10 MG TAB PO (08:51)
[2018-01-02] MEDS: APIXABAN 5 MG TAB (ELIQUIS) PO ×2 (08:51→21:12)
[2018-01-02] MEDS: POTASSIUM CHLORIDE 10 MEQ SR TABLET PO (08:51)
[2018-01-02] MEDS: FUROSEMIDE 40 MG TAB PO ×2 (08:52→15:18)
[2018-01-02] MEDS: AUGMENTIN 875 MG TAB PO (10:37)
[2018-01-02] MEDS: IPRATROPIUM 0.5MG/ALBUTEROL 2.5MG INH SOL UD 3ML (DUONEB)(J7620) NEB (11:28)
[2018-01-02] MEDS ORDERED: PIPERACILLIN/TAZOBACTAM SOD 4.5 GM in D5W MINI-BAG PLUS 50 ML IV (12:30)
[2018-01-02] MEDS ORDERED: AZITHROMYCIN INJ 500 MG, VIAL MATE ADAPTER 1 EACH in D5W 250 ML IV (13:00)
[2018-01-02] MEDS ORDERED: PIPERACILLIN/TAZOBACTAM SOD 3.375 GM in D5W MINI-BAG PLUS 50 ML IV (14:00)
[2018-01-02] MEDS: cefTRIAXone SOD 1 GM in D5W MINI-BAG PLUS 50 ML IV (14:17)
[2018-01-02] MEDS: AZITHROMYCIN INJ 500 MG, VIAL MATE ADAPTER 1 EACH in D5W 250 ML IV (15:19)
[2018-01-02] MEDS: ONDANSETRON 4MG/2ML VIAL (J2405) IV (16:10)
[2018-01-02] MEDS: VITAMIN D 1,000 INTERNATIONAL UNITS TABLET PO (21:12)
[2018-01-03] MEDS: SLF 3 ML SYR IV ×3 (05:16→21:16)
[2018-01-03] MEDS: FORMOTEROL FUMARATE 20 MCG/2 ML INHALATION SOLUTION (PERFOROMIST) INH ×2 (06:36→21:04)
[2018-01-03] MEDS: BUDESONIDE 0.5 MG/2 ML INHALATION SUSPENSION INH ×2 (06:36→21:03)
[2018-01-03 06:49] LABS: BASO % 0.3 % (0.0-1.0); EOS # 0.1 10^3/uL (0.0-0.50); EOS % 0.5 % (0.0-3.0); HEMATOCRIT 35.3 % (36.0-47.0); HEMOGLOBIN 11.2 g/dl (12.0-15.5); IMMATURE GRANULOCYTE % 1.9 % (0-3.0); LYMPH # 2.6 10^3/uL (1.5-4.5); LYMPH % 22.1 % (24.0-44.0); MEAN CORPUSCULAR HGB CONC 31.7 g/dl (32.0-36.5); MEAN CORPUSCULAR VOLUME 94.6 fl (80.0-96.0); MONO # 0.7 10^3/uL (0.0-0.8); MONO % 5.7 % (0.0-5.0); NEUTROPHILS # 8.1 10^3/uL (1.8-7.7); NEUTROPHILS % 69.5 % (36.0-66.0); PLATELET COUNT, AUTOMATED 199 10^3/uL (150-450); RED BLOOD COUNT 3.73 10^6/uL (4.00-5.40); RED CELL DISTRIBUTION WIDTH 15.6 % (11.5-14.5); WHITE BLOOD COUNT 11.7 10^3/uL (4.0-10.0)
[2018-01-03 07:19] LABS: ANION GAP 8 MEQ/L (8-16); BLOOD UREA NITROGEN 40 MG/DL (7-18); CALCIUM LEVEL 8.1 MG/DL (8.8-10.2); CARBON DIOXIDE LEVEL 30 MEQ/L (21-32); CHLORIDE LEVEL 105 MEQ/L (98-107); CREATININE FOR GFR 1.01 MG/DL (0.55-1.30); GLOMERULAR FILTRATION RATE 55.3 (>32); GLUCOSE, FASTING 98 MG/DL (70-100); POTASSIUM SERUM 3.7 MEQ/L (3.5-5.1); SODIUM LEVEL 143 MEQ/L (136-145)
[2018-01-03] MEDS: SODIUM CHLORIDE HYPERTONIC 3% 15ML NEB SOL INH ×3 (08:00→16:20)
[2018-01-03] MEDS: ALBUTEROL SULFATE 2.5 MG/0.5 ML INH NEB SOLN NEB ×3 (08:00→16:19)
[2018-01-03] MEDS: PARoxetine 20 MG TAB PO (08:47)
[2018-01-03] MEDS: MULTIVITAMINS/MINERALS THERAP 1 TAB PO (08:47)
[2018-01-03] MEDS: OMEPRAZOLE 20 MG CAP PO (08:47)
[2018-01-03] MEDS: ATORVASTATIN 20 MG TAB PO (08:47)
[2018-01-03] MEDS: APIXABAN 5 MG TAB (ELIQUIS) PO ×2 (08:47→21:15)
[2018-01-03] MEDS: FOLIC ACID 1 MG TAB PO (08:47)
[2018-01-03] MEDS: MONTELUKAST 10 MG TAB PO (08:47)
[2018-01-03] MEDS: ASPIRIN 81 MG ENTERIC TAB PO (08:47)
[2018-01-03] MEDS: FUROSEMIDE 40 MG TAB PO (08:48)
[2018-01-03] MEDS: FEXOFENADINE 60 MG TAB PO (08:48)
[2018-01-03] MEDS: amLODIPine 5 MG TAB PO (08:48)
[2018-01-03] MEDS: BISOPROLOL FUMARATE 10 MG TAB PO (08:49)
[2018-01-03] MEDS: DOCUSATE SODIUM 100 MG CAP PO ×2 (08:49→21:00)
[2018-01-03] MEDS: predniSONE 20 MG TAB PO (08:49)
[2018-01-03] MEDS: cefTRIAXone SOD 1 GM in D5W MINI-BAG PLUS 50 ML IV (12:24)
[2018-01-03] MEDS: AZITHROMYCIN INJ 500 MG, VIAL MATE ADAPTER 1 EACH in D5W 250 ML IV (13:41)
[2018-01-03] MEDS: CANDESARTAN 16 MG TABLET PO (17:16)
[2018-01-03] MEDS: VITAMIN D 1,000 INTERNATIONAL UNITS TABLET PO (21:15)
[2018-01-04] MEDS: BISOPROLOL FUMARATE 10 MG TAB PO (05:34)
[2018-01-04] MEDS: SLF 3 ML SYR IV (05:35)
[2018-01-04 05:59] LABS: BASO % 0.2 % (0.0-1.0); EOS # 0.1 10^3/uL (0.0-0.50); EOS % 0.7 % (0.0-3.0); HEMATOCRIT 35.3 % (36.0-47.0); HEMOGLOBIN 11.3 g/dl (12.0-15.5); IMMATURE GRANULOCYTE % 4.4 % (0-3.0); LYMPH # 2.9 10^3/uL (1.5-4.5); LYMPH % 21.1 % (24.0-44.0); MEAN CORPUSCULAR HEMOGLOBIN 29.9 pg (27.0-33.0); MEAN CORPUSCULAR VOLUME 93.4 fl (80.0-96.0); MONO # 1.1 10^3/uL (0.0-0.8); MONO % 7.9 % (0.0-5.0); NEUTROPHILS % 65.7 % (36.0-66.0); PLATELET COUNT, AUTOMATED 202 10^3/uL (150-450); RED BLOOD COUNT 3.78 10^6/uL (4.00-5.40); RED CELL DISTRIBUTION WIDTH 15.5 % (11.5-14.5); WHITE BLOOD COUNT 13.7 10^3/uL (4.0-10.0)
[2018-01-04 06:27] LABS: ANION GAP 7 MEQ/L (8-16); BLOOD UREA NITROGEN 40 MG/DL (7-18); CALCIUM LEVEL 8.9 MG/DL (8.8-10.2); CARBON DIOXIDE LEVEL 30 MEQ/L (21-32); CHLORIDE LEVEL 107 MEQ/L (98-107); CREATININE FOR GFR 1.09 MG/DL (0.55-1.30); GLOMERULAR FILTRATION RATE 50.7 (>32); GLUCOSE, FASTING 109 MG/DL (70-100); POTASSIUM SERUM 4.1 MEQ/L (3.5-5.1); SODIUM LEVEL 144 MEQ/L (136-145)
[2018-01-04] MEDS: ALBUTEROL SULFATE 2.5 MG/0.5 ML INH NEB SOLN NEB ×2 (07:30)
[2018-01-04] MEDS: FORMOTEROL FUMARATE 20 MCG/2 ML INHALATION SOLUTION (PERFOROMIST) INH (07:30)
[2018-01-04] MEDS: SODIUM CHLORIDE HYPERTONIC 3% 15ML NEB SOL INH ×2 (07:30)
[2018-01-04] MEDS: BUDESONIDE 0.5 MG/2 ML INHALATION SUSPENSION INH (07:30)
[2018-01-04] MEDS: PARoxetine 20 MG TAB PO (08:56)
[2018-01-04] MEDS: DOCUSATE SODIUM 100 MG CAP PO (08:56)
[2018-01-04] MEDS: ASPIRIN 81 MG ENTERIC TAB PO (08:56)
[2018-01-04] MEDS: OMEPRAZOLE 20 MG CAP PO (08:56)
[2018-01-04] MEDS: ATORVASTATIN 20 MG TAB PO (08:56)
[2018-01-04] MEDS: MONTELUKAST 10 MG TAB PO (08:56)
[2018-01-04] MEDS: FUROSEMIDE 40 MG TAB PO (08:57)
[2018-01-04] MEDS: MULTIVITAMINS/MINERALS THERAP 1 TAB PO (08:57)
[2018-01-04] MEDS: CANDESARTAN 16 MG TABLET PO (08:57)
[2018-01-04] MEDS: APIXABAN 5 MG TAB (ELIQUIS) PO (08:57)
[2018-01-04] MEDS: FOLIC ACID 1 MG TAB PO (08:57)
[2018-01-04] MEDS: FEXOFENADINE 60 MG TAB PO (08:57)
[2018-01-05] MEDS ORDERED: METHOTREXATE 2.5 MG TAB (J8610 PER 2.5MG) PO (09:00)
== END 2018-01-04 11:54 | disposition home or self-care (01) | DRG 191 ==
LOC: M MSPAV 01-02 17:22 → M ED 11:44 → M ED INP 14:05 → M PCU 16:36
DX: J44.1 Chronic obstructive pulmonary disease with (acute) exacerbation (principal); N17.9 Acute kidney failure, unspecified; I50.32 Chronic diastolic (congestive) heart failure; G45.9 Transient cerebral ischemic attack, unspecified; I13.0 Hypertensive heart and chronic kidney disease with heart failure and stage 1 through stage 4 chronic kidney disease, or unspecified chronic kidney disease; M06.9 Rheumatoid arthritis, unspecified; I48.91 Unspecified atrial fibrillation; F32.9 Major depressive disorder, single episode, unspecified; N18.3 Chronic kidney disease, stage 3 (moderate); Z79.899 Other long term (current) drug therapy; Z79.82 Long term (current) use of aspirin; Z87.891 Personal history of nicotine dependence; G47.00 Insomnia, unspecified; K21.9 Gastro-esophageal reflux disease without esophagitis; Z86.73 Personal history of transient ischemic attack (TIA), and cerebral infarction without residual deficits

== ENCOUNTER → 2018-01-25 | Outpatient (CLI) | payer MEDICARE, BC | LOC: M CARPUL 09:45 | DX: M06.9 Rheumatoid arthritis, unspecified (principal) | CPT/HCPCS: 94010 ==

== ENCOUNTER → 2018-02-22 | Outpatient (REF) | payer MEDICARE, BC ==
[~2018-02-22] MED LIST: ALLE180T33 PO; ASPI81TAEC PO; ATOR1TAB21 PO; AZIT-12 PO; BACITAB PO; BISO10TA6 PO; BISO5TAB5 PO; BREO1INH3 INH; CALC1TAB21 PO; CALC600T60 PO; CAND16TA7 PO; CARD180C4 PO; CEFD300CAP PO; ELIQ5TAB PO; FOLI1TAB5 PO; FURO20TA2 PO; HYDR50TA70 PO; JANU100T PO; K-TA10TA2 PO; LASI40TA PO; LOSA100T8 PO; METH2.5T48 PO; METO1TAB7 PO; MULTCAP PO; OMEP-221 PO; PARO20TA3 PO; POTA10CA32 PO; SING10TA32 PO; VALS1TAB47 PO; VENTAER INH; VITA-122 PO; VITMTA PO
[2018-02-22 12:48] LABS: BASO # 0.1 10^3/uL (0.0-0.2); BASO % 0.5 % (0.0-1.0); EOS # 0.4 10^3/uL (0.0-0.50); EOS % 3.5 % (0.0-3.0); HEMATOCRIT 36.9 % (36.0-47.0); HEMOGLOBIN 11.4 g/dl (12.0-15.5); LYMPH # 2.1 10^3/uL (1.5-4.5); LYMPH % 20.8 % (24.0-44.0); MEAN CORPUSCULAR HEMOGLOBIN 30.6 pg (27.0-33.0); MEAN CORPUSCULAR HGB CONC 30.9 g/dl (32.0-36.5); MEAN CORPUSCULAR VOLUME 99.2 fl (80.0-96.0); MONO # 1.1 10^3/uL (0.0-0.8); MONO % 10.8 % (0.0-5.0); NEUTROPHILS # 6.5 10^3/uL (1.8-7.7); NEUTROPHILS % 63.8 % (36.0-66.0); PLATELET COUNT, AUTOMATED 218 10^3/uL (150-450); RED BLOOD COUNT 3.72 10^6/uL (4.00-5.40); WHITE BLOOD COUNT 10.2 10^3/uL (4.0-10.0)
[2018-02-22 12:58] LABS: ALBUMIN 3.3 GM/DL (3.2-5.2); ALT/SGPT 22 U/L (12-78); BILIRUBIN,TOTAL 0.5 MG/DL (0.2-1.0); BLOOD UREA NITROGEN 19 MG/DL (7-18); C REACTIVE PROTEIN QUANTITATIV 0.94 MG/DL (0.00-0.30); CALCIUM LEVEL 8.6 MG/DL (8.8-10.2); CARBON DIOXIDE LEVEL 30 MEQ/L (21-32); CHLORIDE LEVEL 105 MEQ/L (98-107); CREATININE FOR GFR 0.86 MG/DL (0.55-1.30); GLOMERULAR FILTRATION RATE > 60.0 (>32); GLUCOSE, FASTING 113 MG/DL (70-100); POTASSIUM SERUM 4.6 MEQ/L (3.5-5.1); SODIUM LEVEL 144 MEQ/L (136-145); TOTAL PROTEIN 6.8 GM/DL (6.4-8.2)
[2018-02-22 14:03] LABS: ERYTHROCYTE SEDIMENTATION RATE 33 mm/hr (0-42)
== END ==
LOC: M SFHCPLAZ 09:33
PROVIDERS: ATTEND Internal Medicine Rheumatology
DX: M06.9 Rheumatoid arthritis, unspecified (principal)
CPT/HCPCS: 36415; 80053; 85025; 85652; 86140; G0463

== ENCOUNTER → 2018-03-18 | Outpatient (REF) | payer MEDICARE, BC ==
[~2018-03-18] MED LIST changes: +FOLI1TAB11 PO; -FOLI1TAB5 PO; -LASI40TA PO; +LASI40TA9 PO
[2018-03-18 18:01] LABS: DIGOXIN LEVEL 1.5 NG/ML (0.5-2.0)
== END ==
LOC: M LAB REF 16:21
PROVIDERS: ATTEND Nurse Practitioner Adult Health
DX: R10.31 Right lower quadrant pain (principal); R11.2 Nausea with vomiting, unspecified; I48.2 Chronic atrial fibrillation; I50.32 Chronic diastolic (congestive) heart failure

== ENCOUNTER → 2018-04-08 | Outpatient (REF) | payer MEDICARE, BC | LOC: M LAB REF 16:24 | PROVIDERS: ATTEND Nurse Practitioner Adult Health | DX: I48.2 Chronic atrial fibrillation (principal); I50.32 Chronic diastolic (congestive) heart failure ==

== ENCOUNTER → 2018-05-18 | Outpatient (REF) | payer MEDICARE, BC ==
[2018-05-18 17:04] LABS: BASO # 0.1 10^3/uL (0.0-0.2); BASO % 0.4 % (0.0-1.0); EOS # 0.3 10^3/uL (0.0-0.50); EOS % 2.2 % (0.0-3.0); HEMOGLOBIN 11.7 g/dl (12.0-15.5); LYMPH # 1.8 10^3/uL (1.5-4.5); MEAN CORPUSCULAR HEMOGLOBIN 29.8 pg (27.0-33.0); MEAN CORPUSCULAR VOLUME 99.2 fl (80.0-96.0); MONO # 0.9 10^3/uL (0.0-0.8); MONO % 7.6 % (0.0-5.0); NEUTROPHILS # 8.9 10^3/uL (1.8-7.7); NEUTROPHILS % 73.9 % (36.0-66.0); PLATELET COUNT, AUTOMATED 247 10^3/uL (150-450); RED BLOOD COUNT 3.93 10^6/uL (4.00-5.40)
[2018-05-18 17:30] LABS: ERYTHROCYTE SEDIMENTATION RATE 45 mm/hr (0-42)
[2018-05-18 17:34] LABS: ALBUMIN 3.4 GM/DL (3.2-5.2); ALT/SGPT 21 U/L (12-78); BILIRUBIN,TOTAL 0.5 MG/DL (0.2-1.0); BLOOD UREA NITROGEN 19 MG/DL (7-18); C REACTIVE PROTEIN QUANTITATIV 0.54 MG/DL (0.00-0.30); CALCIUM LEVEL 8.7 MG/DL (8.8-10.2); CARBON DIOXIDE LEVEL 29 MEQ/L (21-32); CHLORIDE LEVEL 105 MEQ/L (98-107); CREATININE FOR GFR 0.86 MG/DL (0.55-1.30); GLOMERULAR FILTRATION RATE > 60.0 (>32); GLUCOSE, FASTING 117 MG/DL (70-100); POTASSIUM SERUM 4.8 MEQ/L (3.5-5.1); SODIUM LEVEL 142 MEQ/L (136-145); TOTAL PROTEIN 7.1 GM/DL (6.4-8.2)
== END ==
LOC: M SFHCLERA 10:36
PROVIDERS: ATTEND Internal Medicine Rheumatology
DX: M06.9 Rheumatoid arthritis, unspecified (principal)

== ENCOUNTER → 2018-07-13 | Outpatient (REF) | payer MEDICARE, BC ==
[~2018-07-13] MED LIST changes: -VALS1TAB47 PO; +VALS1TAB67 PO
[2018-07-13 16:48] LABS: ALT/SGPT 21 U/L (12-78); BILIRUBIN,TOTAL 0.6 MG/DL (0.2-1.0); BLOOD UREA NITROGEN 27 MG/DL (7-18); C REACTIVE PROTEIN QUANTITATIV 1.74 MG/DL (0.00-0.30); CALCIUM LEVEL 8.9 MG/DL (8.8-10.2); CARBON DIOXIDE LEVEL 29 MEQ/L (21-32); CHLORIDE LEVEL 107 MEQ/L (98-107); CREATININE FOR GFR 0.94 MG/DL (0.55-1.30); GLOMERULAR FILTRATION RATE > 60.0 (>32); GLUCOSE, FASTING 109 MG/DL (70-100); NT-PRO BNP 2747 PG/ML (<450); POTASSIUM SERUM 4.8 MEQ/L (3.5-5.1); SODIUM LEVEL 143 MEQ/L (136-145); TOTAL PROTEIN 6.9 GM/DL (6.4-8.2)
[2018-07-13 17:17] LABS: BASO # 0.1 10^3/uL (0.0-0.2); BASO % 0.4 % (0.0-1.0); EOS # 0.2 10^3/uL (0.0-0.50); HEMATOCRIT 39.6 % (36.0-47.0); HEMOGLOBIN 12.2 g/dl (12.0-15.5); LYMPH # 2.5 10^3/uL (1.5-4.5); LYMPH % 20.8 % (24.0-44.0); MEAN CORPUSCULAR HEMOGLOBIN 30.2 pg (27.0-33.0); MEAN CORPUSCULAR HGB CONC 30.8 g/dl (32.0-36.5); MONO % 8.5 % (0.0-5.0); NEUTROPHILS # 8.3 10^3/uL (1.8-7.7); NEUTROPHILS % 67.9 % (36.0-66.0); PLATELET COUNT, AUTOMATED 260 10^3/uL (150-450); RED BLOOD COUNT 4.04 10^6/uL (4.00-5.40); WHITE BLOOD COUNT 12.2 10^3/uL (4.0-10.0)
[2018-07-13 19:48] LABS: ERYTHROCYTE SEDIMENTATION RATE 59 mm/hr (0-42)
== END ==
LOC: M SFHCPLAZ 12:19
PROVIDERS: ATTEND Internal Medicine Rheumatology
DX: M06.9 Rheumatoid arthritis, unspecified (principal); I50.32 Chronic diastolic (congestive) heart failure

== ENCOUNTER → 2018-10-28 | Outpatient (REF) | payer MEDICARE, BC ==
[~2018-10-28] MED LIST changes: +BISO10TA10 PO; -BISO10TA6 PO
[2018-10-28 17:03] LABS: ALBUMIN 3.6 GM/DL (3.2-5.2); ALT/SGPT 27 U/L (12-78); BLOOD UREA NITROGEN 26 MG/DL (7-18); C REACTIVE PROTEIN QUANTITATIV < 0.30 MG/DL (0.00-0.30); CALCIUM LEVEL 9.3 MG/DL (8.8-10.2); CARBON DIOXIDE LEVEL 30 MEQ/L (21-32); CHLORIDE LEVEL 105 MEQ/L (98-107); CREATININE FOR GFR 0.87 MG/DL (0.55-1.30); GLOMERULAR FILTRATION RATE > 60.0 (>32); GLUCOSE, FASTING 105 MG/DL (70-100); POTASSIUM SERUM 4.5 MEQ/L (3.5-5.1); SODIUM LEVEL 141 MEQ/L (136-145); TOTAL PROTEIN 7.2 GM/DL (6.4-8.2)
[2018-10-28 17:10] LABS: BASO % 0.6 % (0.0-1.0); EOS # 0.2 10^3/uL (0.0-0.50); EOS % 2.8 % (0.0-3.0); LYMPH % 29.3 % (24.0-44.0); MEAN CORPUSCULAR HEMOGLOBIN 32.3 pg (27.0-33.0); MEAN CORPUSCULAR HGB CONC 32.4 g/dl (32.0-36.5); MEAN CORPUSCULAR VOLUME 99.5 fl (80.0-96.0); MONO # 0.5 10^3/uL (0.0-0.8); NEUTROPHILS # 4.1 10^3/uL (1.8-7.7); PLATELET COUNT, AUTOMATED 214 10^3/uL (150-450); RED BLOOD COUNT 3.72 10^6/uL (4.00-5.40); WHITE BLOOD COUNT 6.8 10^3/uL (4.0-10.0)
[2018-10-28 18:27] LABS: ERYTHROCYTE SEDIMENTATION RATE 41 mm/hr (0-42)
== END ==
LOC: M SFHCRHEU 11:44
PROVIDERS: ATTEND Internal Medicine Rheumatology
DX: M06.9 Rheumatoid arthritis, unspecified (principal)
CPT/HCPCS: 80053; 85025; 85652; 86140; G0463

== ENCOUNTER → 2018-12-21 | Outpatient (REF) | payer MEDICARE, BC ==
[~2018-12-21] MED LIST changes: -BISO5TAB5 PO; +BISO5TAB9 PO; +FLUO10CA8; +MAGN1CAP PO; +PANT40TA3
[2018-12-21 17:00] LABS: ALBUMIN 3.5 GM/DL (3.2-5.2); ALT/SGPT 20 U/L (12-78); BILIRUBIN,TOTAL 0.6 MG/DL (0.2-1.0); BLOOD UREA NITROGEN 23 MG/DL (7-18); C REACTIVE PROTEIN QUANTITATIV < 0.30 MG/DL (0.00-0.30); CALCIUM LEVEL 9.4 MG/DL (8.8-10.2); CARBON DIOXIDE LEVEL 33 MEQ/L (21-32); CHLORIDE LEVEL 103 MEQ/L (98-107); CREATININE FOR GFR 0.95 MG/DL (0.55-1.30); GLOMERULAR FILTRATION RATE 59.2 (>32); GLUCOSE, FASTING 98 MG/DL (70-100); POTASSIUM SERUM 4.6 MEQ/L (3.5-5.1); SODIUM LEVEL 141 MEQ/L (136-145); TOTAL PROTEIN 7.2 GM/DL (6.4-8.2)
[2018-12-21 17:14] LABS: BASO # 0.1 10^3/uL (0.0-0.2); BASO % 0.7 % (0.0-1.0); EOS # 0.4 10^3/uL (0.0-0.5); EOS % 3.7 % (0.0-3.0); HEMATOCRIT 41.4 % (36.0-47.0); HEMOGLOBIN 12.9 g/dl (12.0-15.5); LYMPH % 21.5 % (24.0-44.0); MEAN CORPUSCULAR HEMOGLOBIN 31.5 pg (27.0-33.0); MEAN CORPUSCULAR HGB CONC 31.2 g/dl (32.0-36.5); MONO # 1.1 10^3/uL (0.0-0.8); MONO % 11.8 % (0.0-5.0); NEUTROPHILS # 5.8 10^3/uL (1.5-8.5); NEUTROPHILS % 61.8 % (36.0-66.0); PLATELET COUNT, AUTOMATED 222 10^3/uL (150-450); WHITE BLOOD COUNT 9.4 10^3/uL (4.0-10.0)
[2018-12-21 19:25] LABS: ERYTHROCYTE SEDIMENTATION RATE 37 mm/hr (0-30)
== END ==
LOC: M SFHCRHEU 11:09
PROVIDERS: ATTEND Internal Medicine Rheumatology
DX: M06.9 Rheumatoid arthritis, unspecified (principal)
CPT/HCPCS: 80053; 85025; 85652; 86140; 86480; G0463

== ENCOUNTER → 2018-12-27 | Outpatient (REF) | payer MEDICARE, BC ==
[~2018-12-27] MED LIST changes: -BISO10TA10 PO; +BISO10TA14 PO; +BISO5TAB14 PO; -BISO5TAB9 PO; +FLUO10CA15; -FLUO10CA8
[2018-12-28 10:04] LABS: H PYLORI QUALITATIVE IgG NEGATIVE (NEGATIVE)
== END ==
LOC: M LAB REF 16:34
PROVIDERS: ATTEND Registered Nurse
DX: K21.9 Gastro-esophageal reflux disease without esophagitis (principal)

== ENCOUNTER 2019-01-01 16:45 | Emergency (ER) | payer MEDICARE, BC ==
[~2019-01-01] VITALS: Ht 157.5 cm; Wt 88.3 kg
[~2019-01-01 16:45] MED LIST changes: +BISO10TA10 PO; -BISO10TA14 PO; -BISO5TAB14 PO; +BISO5TAB9 PO; -FLUO10CA15; -MAGN1CAP PO; -PANT40TA3
[2019-01-01] MEDS ORDERED: MAGN1CAP PO (17:26)
[2019-01-01] MEDS ORDERED: FLUO10CA8 (17:26)
[2019-01-01] MEDS ORDERED: PANT40TA3 (17:26)
[2019-01-01 18:30] LABS: BASO % 0.4 % (0.0-1.0); EOS # 0.3 10^3/uL (0.0-0.5); EOS % 3.6 % (0.0-3.0); HEMATOCRIT 38.8 % (36.0-47.0); HEMOGLOBIN 12.9 g/dl (12.0-15.5); LYMPH % 21.5 % (24.0-44.0); MEAN CORPUSCULAR HGB CONC 33.2 g/dl (32.0-36.5); MEAN CORPUSCULAR VOLUME 99.2 fl (80.0-96.0); MONO # 1.2 10^3/uL (0.0-0.8); MONO % 12.8 % (0.0-5.0); NEUTROPHILS # 5.8 10^3/uL (1.5-8.5); NEUTROPHILS % 61.4 % (36.0-66.0); PLATELET COUNT, AUTOMATED 202 10^3/uL (150-450); RED BLOOD COUNT 3.91 10^6/uL (4.00-5.40); WHITE BLOOD COUNT 9.5 10^3/uL (4.0-10.0)
[2019-01-01 19:00] LABS: ALBUMIN 3.2 GM/DL (3.2-5.2); ALT/SGPT 20 U/L (12-78); BILIRUBIN,DIRECT 0.2 MG/DL (0.0-0.2); BILIRUBIN,TOTAL 0.7 MG/DL (0.2-1.0); BLOOD UREA NITROGEN 23 MG/DL (7-18); CALCIUM LEVEL 8.7 MG/DL (8.8-10.2); CARBON DIOXIDE LEVEL 32 MEQ/L (21-32); CHLORIDE LEVEL 103 MEQ/L (98-107); CK-MB VALUE MASS 1.5 NG/ML (<3.6); CPK CREATINE PHOSPHOKINASE 84 U/L (26-192); CREATININE FOR GFR 0.91 MG/DL (0.55-1.30); GLOMERULAR FILTRATION RATE > 60.0 (>32); GLUCOSE, FASTING 105 MG/DL (70-100); MB/CK RELATIVE INDEX 1.79 (< OR =4); SODIUM LEVEL 141 MEQ/L (136-145); TOTAL PROTEIN 6.9 GM/DL (6.4-8.2); TROPONIN I 0.02 NG/ML (< 0.10)
[2019-01-01 19:45] VITALS: BP 193/91
--- NOTE | 2019-01-01 19:45 | ED PDOC ---
Post-Departure Follow-Up lab follow up: cbc - wnl med profile - normal except BUN of 23 LFT's - wnl Cardiac - wnl CS KELSEY MATTSON DO Jan 01, 2019 19:45
== END 2019-01-01 20:05 | disposition home or self-care (01) ==
LOC: M ED 16:45
DX: K30 Functional dyspepsia (principal); M06.9 Rheumatoid arthritis, unspecified; K21.9 Gastro-esophageal reflux disease without esophagitis; Z79.01 Long term (current) use of anticoagulants; Z79.899 Other long term (current) drug therapy

== ENCOUNTER → 2019-04-01 | Outpatient (REF) | payer MEDICARE, BC ==
[~2019-04-01] MED LIST changes: +FLUO10CA15; +MAGN1CAP PO; +PANT40TA3
== END ==
LOC: M SFHCRHEU 10:12
PROVIDERS: ATTEND Internal Medicine
DX: M05.79 Rheumatoid arthritis with rheumatoid factor of multiple sites without organ or systems involvement (principal); Z53.8 Procedure and treatment not carried out for other reasons

== ENCOUNTER → 2019-04-05 | Outpatient (REF) | payer MEDICARE, BC ==
[~2019-04-05] MED LIST changes: -BISO10TA10 PO; +BISO10TA14 PO; +BISO5TAB14 PO; -BISO5TAB9 PO
[2019-04-05 11:48] LABS: BASO # 0.1 10^3/uL (0.0-0.2); BASO % 0.6 % (0.0-1.0); EOS # 0.3 10^3/uL (0.0-0.5); EOS % 3.6 % (0.0-3.0); HEMATOCRIT 37.5 % (36.0-47.0); HEMOGLOBIN 11.8 g/dl (12.0-15.5); LYMPH # 2.1 10^3/uL (1.5-5.0); LYMPH % 25.8 % (24.0-44.0); MEAN CORPUSCULAR HEMOGLOBIN 32.5 pg (27.0-33.0); MEAN CORPUSCULAR HGB CONC 31.5 g/dl (32.0-36.5); MEAN CORPUSCULAR VOLUME 103.3 fl (80.0-96.0); MONO # 0.9 10^3/uL (0.0-0.8); MONO % 11.2 % (0.0-5.0); NEUTROPHILS # 4.8 10^3/uL (1.5-8.5); NEUTROPHILS % 58.6 % (36.0-66.0); PLATELET COUNT, AUTOMATED 217 10^3/uL (150-450); RED BLOOD COUNT 3.63 10^6/uL (4.00-5.40); WHITE BLOOD COUNT 8.2 10^3/uL (4.0-10.0)
[2019-04-05 12:29] LABS: ALBUMIN 3.2 GM/DL (3.2-5.2); ALT/SGPT 18 U/L (12-78); BILIRUBIN,TOTAL 0.5 MG/DL (0.2-1.0); BLOOD UREA NITROGEN 21 MG/DL (7-18); C REACTIVE PROTEIN QUANTITATIV < 0.30 MG/DL (0.00-0.30); CALCIUM LEVEL 9.3 MG/DL (8.8-10.2); CARBON DIOXIDE LEVEL 31 MEQ/L (21-32); CHLORIDE LEVEL 102 MEQ/L (98-107); GLOMERULAR FILTRATION RATE > 60.0 (>32); GLUCOSE, FASTING 87 MG/DL (70-100); POTASSIUM SERUM 4.3 MEQ/L (3.5-5.1); SODIUM LEVEL 140 MEQ/L (136-145); TOTAL PROTEIN 7.3 GM/DL (6.4-8.2)
[2019-04-05 12:34] LABS: ERYTHROCYTE SEDIMENTATION RATE 49 mm/hr (0-30)
== END ==
LOC: M SFHCLERA 09:25
PROVIDERS: ATTEND Internal Medicine
DX: M05.79 Rheumatoid arthritis with rheumatoid factor of multiple sites without organ or systems involvement (principal)

== ENCOUNTER → 2019-07-29 | Outpatient (REF) | payer MEDICARE, BC ==
[2019-07-29 17:11] LABS: ALBUMIN 3.6 GM/DL (3.2-5.2); ALT/SGPT 22 U/L (12-78); BILIRUBIN,TOTAL 0.7 MG/DL (0.2-1.0); BLOOD UREA NITROGEN 25 MG/DL (7-18); C REACTIVE PROTEIN QUANTITATIV 0.42 MG/DL (0.00-0.30); CALCIUM LEVEL 9.3 MG/DL (8.8-10.2); CARBON DIOXIDE LEVEL 31 MEQ/L (21-32); CHLORIDE LEVEL 101 MEQ/L (98-107); CREATININE FOR GFR 0.86 MG/DL (0.55-1.30); GLOMERULAR FILTRATION RATE > 60.0 (>32); GLUCOSE, FASTING 99 MG/DL (70-100); POTASSIUM SERUM 4.5 MEQ/L (3.5-5.1); SODIUM LEVEL 138 MEQ/L (136-145); TOTAL PROTEIN 7.9 GM/DL (6.4-8.2)
[2019-07-29 17:15] LABS: BASO # 0.1 10^3/uL (0.0-0.2); BASO % 0.6 % (0.0-1.0); EOS # 0.2 10^3/uL (0.0-0.5); EOS % 2.4 % (0.0-3.0); HEMATOCRIT 40.9 % (36.0-47.0); HEMOGLOBIN 12.9 g/dl (12.0-15.5); LYMPH # 2.1 10^3/uL (1.5-5.0); LYMPH % 22.7 % (24.0-44.0); MEAN CORPUSCULAR HEMOGLOBIN 31.9 pg (27.0-33.0); MEAN CORPUSCULAR HGB CONC 31.5 g/dl (32.0-36.5); MEAN CORPUSCULAR VOLUME 101.2 fl (80.0-96.0); MONO # 0.8 10^3/uL (0.0-0.8); MONO % 8.9 % (0.0-5.0); NEUTROPHILS # 5.9 10^3/uL (1.5-8.5); NEUTROPHILS % 65.1 % (36.0-66.0); PLATELET COUNT, AUTOMATED 246 10^3/uL (150-450); RED BLOOD COUNT 4.04 10^6/uL (4.00-5.40)
[2019-07-29 18:03] LABS: ERYTHROCYTE SEDIMENTATION RATE 61 mm/hr (0-30)
== END ==
LOC: M SFHCRHEU 13:10
PROVIDERS: ATTEND Internal Medicine
DX: M05.79 Rheumatoid arthritis with rheumatoid factor of multiple sites without organ or systems involvement (principal)

== ENCOUNTER → 2019-11-17 | Outpatient (CLI) | payer MEDICARE, BC ==
[~2019-11-17] MED LIST changes: -FLUO10CA15; +FLUO10CA16; +PANT40TA29; -PANT40TA3
[2019-11-17 19:47] LABS: ALBUMIN 3.4 GM/DL (3.2-5.2); ALT/SGPT 25 U/L (12-78); BILIRUBIN,TOTAL 0.5 MG/DL (0.2-1.0); BLOOD UREA NITROGEN 24 MG/DL (7-18); C REACTIVE PROTEIN QUANTITATIV < 0.30 MG/DL (0.00-0.30); CALCIUM LEVEL 9.2 MG/DL (8.8-10.2); CARBON DIOXIDE LEVEL 33 MEQ/L (21-32); CHLORIDE LEVEL 106 MEQ/L (98-107); CREATININE FOR GFR 0.87 MG/DL (0.55-1.30); GLOMERULAR FILTRATION RATE > 60.0 (>32); GLUCOSE, FASTING 58 MG/DL (70-100); HEMATOCRIT 38.6 % (36.0-47.0); HEMOGLOBIN 11.9 g/dl (12.0-15.5); MEAN CORPUSCULAR HEMOGLOBIN 32.6 pg (27.0-33.0); MEAN CORPUSCULAR HGB CONC 30.8 g/dl (32.0-36.5); MEAN CORPUSCULAR VOLUME 105.8 fl (80.0-96.0); PLATELET COUNT, AUTOMATED 228 10^3/uL (150-450); POTASSIUM SERUM 4.5 MEQ/L (3.5-5.1); RED BLOOD COUNT 3.65 10^6/uL (4.00-5.40); SODIUM LEVEL 142 MEQ/L (136-145); TOTAL PROTEIN 7.3 GM/DL (6.4-8.2); WHITE BLOOD COUNT 8.4 10^3/uL (4.0-10.0)
[2019-11-17 20:27] LABS: ERYTHROCYTE SEDIMENTATION RATE 44 mm/hr (0-30)
== END ==
LOC: M LRY 10:33
PROVIDERS: ATTEND Internal Medicine Rheumatology
DX: M06.9 Rheumatoid arthritis, unspecified (principal)

== ENCOUNTER → 2020-01-19 | Outpatient (CLI) | payer MEDICARE, BC ==
[2020-01-19 19:52] LABS: HEMATOCRIT 39.2 % (36.0-47.0); HEMOGLOBIN 12.1 g/dl (12.0-15.5); MEAN CORPUSCULAR HEMOGLOBIN 32.6 pg (27.0-33.0); MEAN CORPUSCULAR HGB CONC 30.9 g/dl (32.0-36.5); MEAN CORPUSCULAR VOLUME 105.7 fl (80.0-96.0); PLATELET COUNT, AUTOMATED 251 10^3/uL (150-450); RED BLOOD COUNT 3.71 10^6/uL (4.00-5.40); WHITE BLOOD COUNT 7.4 10^3/uL (4.0-10.0)
[2020-01-19 20:20] LABS: ERYTHROCYTE SEDIMENTATION RATE 42 mm/hr (0-30)
[2020-01-19 20:23] LABS: ALBUMIN 3.6 GM/DL (3.2-5.2); ALT/SGPT 27 U/L (12-78); BILIRUBIN,TOTAL 0.6 MG/DL (0.2-1.0); BLOOD UREA NITROGEN 25 MG/DL (7-18); C REACTIVE PROTEIN QUANTITATIV 0.38 MG/DL (0.00-0.30); CARBON DIOXIDE LEVEL 34 MEQ/L (21-32); CHLORIDE LEVEL 104 MEQ/L (98-107); CREATININE FOR GFR 0.86 MG/DL (0.55-1.30); GLOMERULAR FILTRATION RATE > 60.0 (>32); GLUCOSE, FASTING 105 MG/DL (70-100); POTASSIUM SERUM 4.1 MEQ/L (3.5-5.1); SODIUM LEVEL 141 MEQ/L (136-145); TOTAL PROTEIN 7.5 GM/DL (6.4-8.2)
== END ==
LOC: M WUC 15:02
PROVIDERS: ATTEND Internal Medicine Rheumatology
DX: M06.9 Rheumatoid arthritis, unspecified (principal)

== ENCOUNTER → 2020-04-17 | Outpatient (CLI) | payer MEDICARE, BC ==
[2020-04-17 16:18] LABS: BASO # 0.1 10^3/uL (0.0-0.2); BASO % 0.7 % (0.0-1.0); EOS # 0.1 10^3/uL (0.0-0.5); EOS % 1.5 % (0.0-3.0); HEMATOCRIT 37.8 % (36.0-47.0); HEMOGLOBIN 11.7 g/dl (12.0-15.5); LYMPH # 1.2 10^3/uL (1.5-5.0); LYMPH % 14.8 % (24.0-44.0); MEAN CORPUSCULAR HEMOGLOBIN 32.1 pg (27.0-33.0); MEAN CORPUSCULAR VOLUME 103.6 fl (80.0-96.0); MONO # 0.8 10^3/uL (0.0-0.8); MONO % 9.3 % (0.0-5.0); NEUTROPHILS # 5.9 10^3/uL (1.5-8.5); PLATELET COUNT, AUTOMATED 189 10^3/uL (150-450); RED BLOOD COUNT 3.65 10^6/uL (4.00-5.40); WHITE BLOOD COUNT 8.1 10^3/uL (4.0-10.0)
[2020-04-17 16:37] LABS: ERYTHROCYTE SEDIMENTATION RATE 43 mm/hr (0-30)
[2020-04-17 16:48] LABS: ALBUMIN 3.6 GM/DL (3.2-5.2); ALT/SGPT 22 U/L (12-78); BILIRUBIN,TOTAL 0.8 MG/DL (0.2-1.0); BLOOD UREA NITROGEN 21 MG/DL (7-18); C REACTIVE PROTEIN QUANTITATIV 0.51 MG/DL (0.00-0.30); CALCIUM LEVEL 9.4 MG/DL (8.8-10.2); CARBON DIOXIDE LEVEL 34 MEQ/L (21-32); CHLORIDE LEVEL 102 MEQ/L (98-107); CREATININE FOR GFR 0.81 MG/DL (0.55-1.30); GLOMERULAR FILTRATION RATE > 60.0 (>32); GLUCOSE, FASTING 106 MG/DL (70-100); POTASSIUM SERUM 4.4 MEQ/L (3.5-5.1); SODIUM LEVEL 140 MEQ/L (136-145); TOTAL PROTEIN 7.6 GM/DL (6.4-8.2)
== END ==
LOC: M WUC 11:09
PROVIDERS: ATTEND Internal Medicine
DX: M05.79 Rheumatoid arthritis with rheumatoid factor of multiple sites without organ or systems involvement (principal)

== ENCOUNTER → 2020-10-16 | Outpatient (REF) | payer MEDICARE, BC ==
[~2020-10-16] MED LIST changes: +ASPI-569 PO; -ASPI81TAEC PO
[2020-10-17 12:29] LABS: EOSINOPHILS 1 % (0-3); LYMPHOCYTES 16 % (16-44); MONOCYTES 9 % (0-5); NEUTROPHILS 74 % (28-66)
[2020-10-17 12:30] LABS: PLATELET ESTIMATE NORMAL (NORMAL)
== END ==
LOC: M LAB REF 11:22
PROVIDERS: ATTEND Nurse Practitioner Adult Health
DX: D72.829 Elevated white blood cell count, unspecified (principal)

== ENCOUNTER 2020-11-30 12:00 | Inpatient (IN) | payer MEDICARE, BC ==
[~2020-11-30] VITALS: Ht 162.6 cm; Wt 81.0 kg
[~2020-11-30 12:00] MED LIST changes: -PANT40TA29; +PANT40TA29 PO
[2020-11-30] MEDS ORDERED: PARO5TAB PO (12:19)
[2020-11-30] MEDS ORDERED: DILT1CAP7 PO (12:19)
[2020-11-30] MEDS ORDERED: diltiaZEM **CD** 180 MG CAP PO ONE (12:40)
[2020-11-30] MEDS: LEVALBUTEROL 1.25 MG/0.5 ML CONCENTRATE NEB NEB PRN ×3 (12:56→13:10)
--- NOTE | 2020-11-30 13:46 | REP ---
INDICATION: DYSPNEA/COUGH. COMPARISON: Comparison chest x-ray December 29, 2017. TECHNIQUE: Portable upright AP chest radiograph. FINDINGS: Cyst heart is mildly enlarged unchanged. Interstitial markings are prominent bilaterally consistent with interstitial edema pattern. No pleural effusion is seen. Pulmonary vasculature does not appear prominent. Oxygen delivery tubing and EKG electrodes are seen. IMPRESSION: New diffuse interstitial lung changes. Pulmonary edema versus interstitial pneumonitis. Mild cardiomegaly unchanged. <Electronically signed by Tony Robins > 11/30/20 [id number]
[2020-11-30 13:49] LABS: BASO % 0.2 % (0.0-1.0); EOS # 0.1 10^3/uL (0.0-0.5); EOS % 0.5 % (0.0-3.0); HEMATOCRIT 35.7 % (36.0-47.0); HEMOGLOBIN 11.3 g/dl (12.0-15.5); LYMPH # 0.5 10^3/uL (1.5-5.0); LYMPH % 3.9 % (24.0-44.0); MEAN CORPUSCULAR HEMOGLOBIN 32.3 pg (27.0-33.0); MEAN CORPUSCULAR HGB CONC 31.7 g/dl (32.0-36.5); MONO # 0.5 10^3/uL (0.0-0.8); MONO % 3.5 % (2.0-8.0); NEUTROPHILS # 11.8 10^3/uL (1.5-8.5); NEUTROPHILS % 91.1 % (36.0-66.0); PLATELET COUNT, AUTOMATED 243 10^3/uL (150-450)
[2020-11-30 14:15] LABS: RSV AMPLIFICATION NEGATIVE (NEGATIVE)
[2020-11-30] MEDS ORDERED: FUROSEMIDE 40MG/4ML VIAL (J1940) IV ONE (14:25)
[2020-11-30 14:27] LABS: ALT/SGPT 36 U/L (12-78); BILIRUBIN,DIRECT 0.4 MG/DL (0.0-0.2); BILIRUBIN,TOTAL 1.1 MG/DL (0.2-1.0); BLOOD UREA NITROGEN 15 MG/DL (7-18); CALCIUM LEVEL 8.8 MG/DL (8.8-10.2); CARBON DIOXIDE LEVEL 28 MEQ/L (21-32); CHLORIDE LEVEL 106 MEQ/L (98-107); CPK CREATINE PHOSPHOKINASE 64 U/L (26-192); CREATININE FOR GFR 0.63 MG/DL (0.55-1.30); GLOMERULAR FILTRATION RATE > 60.0 (>32); GLUCOSE, FASTING 135 MG/DL (70-100); MB/CK RELATIVE INDEX 3.12 (< OR =4); NT-PRO BNP 8187 PG/ML (<450); POTASSIUM SERUM 3.9 MEQ/L (3.5-5.1); SODIUM LEVEL 142 MEQ/L (136-145); THYROXINE (T4) 7.3 UG/DL (4.5-12.0); TOTAL PROTEIN 6.7 GM/DL (6.4-8.2); TROPONIN I < 0.02 NG/ML (< 0.10)
[2020-11-30] MEDS ORDERED: ACETAMINOPHEN TAB 650MG DOSE (2X325MG) PO PRN (15:40)
[2020-11-30] MEDS ORDERED: METOPROLOL 5 MG/5 ML VIAL IV PRN (15:50)
[2020-11-30] MEDS ORDERED: LEVALBUTEROL HFA 45MCG/ACT 15 GM INHALER INH PRN (16:05)
--- NOTE | 2020-11-30 16:12 | HPEPDOC ---
General Date of Admission Nov 30, 2020 at 15:39 Date of Service: Nov 30, 2020 Chief Complaint The patient is a 89-year-old female admitted with a reason for visit of Atrial Fibrillation W/ Rvr, Chf. History of Present Illness Mrs. Merchant is an 89-year-old female with CHF with preserved ejection fraction, atrial fibrillation on anticoagulation, and hypertension who presents with shortness of breath. Patient was told in the past that she should be on a low- salt diet. She does not have salt at the table. Once in a while she will have canned soup or cold cuts. She is on a diuretic, but in the past few days she is noticing less urine output. Denies any dysuria. Progressively becoming more short of breath, worse on exertion. Otherwise denies any new medications. This morning she woke up and tried to get out of bed. Exertion made her acutely short of breath, and she could hear expiratory wheezing. Due to her shortness of breath she came into the ED for evaluation. While in the ED, her vital signs have been stable and she has not been hypoxic. Her heart rate was elevated betw een 110 to 120. He does have bibasilar crackles and expiratory wheezing. Work- up was significant for an elevation of BNP at 8000. Chest x-ray demonstrated pulmonary edema. Patient was given frusemide and diltiazem in the ED. Patient be admitted for acute CHF exacerbation and atrial fibrillation with RVR Home Medications Scheduled Apixaban (Eliquis) 5 Mg Tab, 5 MG PO BID, (Reported) Bisoprolol Fumarate (Bisoprolol Fumarate) 10 Mg Tab, 20 MG PO DAILY, (Reported) Candesartan Cilexetil (Candesartan Cilexetil) 8 Mg Tablet, 8 MG PO DAILY, (Reported) Cholecalciferol (Vitamin D3) (Vitamin D3) 1,000 Unit Tablet, 2,000 UNITS PO DAILY, (Reported) Diltiazem HCl (Diltiazem HCl) 30 Mg Tablet, 30 MG PO BID, (Reported) Folic Acid (Folic Acid) 1 Mg Tab, 1 MG PO DAILY, (Reported) Furosemide (Furosemide) 40 Mg Tablet, 40 MG PO DAILY, (Reported) Loratadine (Loratadine) 10 Mg Tablet, 10 MG PO DAILY, (Reported) Magnesium Oxide (Magnesium) 500 Mg Capsule, 500 MG PO DAILY, (Reported) Methotrexate Sodium (Methotrexate) 2.5 Mg Tab, 17.5 MG PO 1XWK, (Reported) TUESDAYS Montelukast Sodium (Singulair) 10 Mg Tab, 10 MG PO DAILY, (Reported) Multivitamins (Thera M Plus Tablet) 1 Tab Tab, 1 TAB PO DAILY, (Reported) Pantoprazole Sodium (Pantoprazole Sodium) 40 Mg Tablet.dr, 40 MG PO DAILY, (Reported) Paroxetine HCl (Paroxetine HCl) 20 Mg Tablet, 20 MG PO DAILY, (Reported) Scheduled PRN Albuterol Sulfate (Ventolin Hfa) 108 Mcg/Act Aer, 2 PUFF INH Q4H PRN for SOB/WHEEZING, (Reported) Allergies Coded Allergies: No Known Allergies (Unverified , 01/01/19) Past Medical History Medical History 1. Hypertension 2. Congestive heart failure with preserved ejection fraction (echocardiogram September 2017 demonstrates EF 65%) 3. Rheumatoid arthritis 4. Atrial fibrillation 5. Depression Surgical History 1. Hysterectomy 2. Multiple for surgery secondary to rheumatoid arthritis 3. Humeral fracture Family History Father: History of diabetes mellitus Mother: History of diabetes mellitus type 2, thyroid cancer, and hypertension Social History * Smoker: former Smoker Alcohol: Denies Drugs: denies A-FIB/CHADSVASC A-FIB History Current/History of A-Fib/PAF?: Yes Current PO Anticoag Therapy: Yes Review of Systems Constitutional: Denies: Chills, Fever Eyes: Denies: Vision change ENT: Denies: Sore Throat Skin: Denies: Rash Pulmonary: Reports: Dyspnea (On exertion), Cough (Phlegm) Cardiovascular: Denies: Chest Pain Gastrointestinal: Denies: Abdominal Pain Genitourinary: Reports: Other Symptoms (Urine volume is less than normal); Denies: Dysuria Hematologic: Denies: Bruising Musculoskeletal: Reports: Joint Pain (Right knee pain) Neurological: Denies: Numbness Psych: Denies: Anxiety, Depression Physical Examination General Exam: Positive: Alert, Cooperative Eye Exam: Positive: EOMI; Negative: Sclera icteric ENT Exam: Positive: Atraumatic Neck Exam: Positive: Supple Chest Exam: Positive: Wheezing, Diminished Heart Exam: Positive: Tachycardic, Irregular Rhythm Abdomen Exam: Positive: Normal bowel sounds, Soft; Negative: Tenderness Extremity Exam: Positive: Edema (Mild bilateral pedal) Neuro Exam: Positive: Normal Speech, Cranial Nerves 3-12 NL Psych Exam: Positive: Mental status NL, Mood NL Vital Signs Vital Signs Date Time Temp Pulse Resp B/P (MAP) Pulse Ox O2 Delivery O2 Flow Rate FiO2 11/30/20 13:25 114 162/92 11/30/20 12:20 Room Air 11/30/20 12:16 26 93 Laboratory Data Labs 24H Laboratory Tests 2 11/30/20 13:04: POC pH (Misc Panel) 7.445, POC Base Excess (Misc Panel) 6.0H, POC Saturated Percent O2 (Misc) 97, POC pO2 (Misc Panel) 87.0, POC pCO2 (Misc Panel) 43.3, POC HCO3 (Misc Panel) 29.8H, POC Total CO2 (Misc Panel) 31.0H 11/30/20 13:16: Immature Granulocyte % (Auto) 0.8, Neutrophils (%) (Auto) 91.1H, Lymphocytes (%) (Auto) 3.9L, Monocytes (%) (Auto) 3.5, Eosinophils (%) (Auto) 0.5, Basophils (%) (Auto) 0.2, Neutrophils # (Auto) 11.8H, Lymphocytes # (Auto) 0.5L, Monocytes # (Auto) 0.5, Eosinophils # (Auto) 0.1, Basophils # (Auto) 0.0, Nucleated Red Blood Cells % (auto) 0.0, Anion Gap 8, Glomerular Filtration Rate > 60.0, Lactic Acid Level 1.9, Calcium Level 8.8, Total Bilirubin 1.1H, Direct Bilirubin 0.4H, Aspartate Amino Transf (AST/SGOT) 43H, Alanine Aminotransferase (ALT/SGPT) 36, Alkaline Phosphatase 82, Total Creatine Kinase 64, Creatine Kinase MB 2.0, Creatine Kinase MB Relative Index 3.12, Troponin I < 0.02, DE-Avn-Q-Type Natriuretic Peptide 8187H, Total Protein 6.7, Albumin 3.0L, Albumin/Globulin Ratio 0.8L, Thyroid Stimulating Hormone (TSH) 1.900, Thyroxine (T4) 7.3, Coronavirus (COVID-19)(PCR) NEGATIVE, Influenza Type A (RT-PCR) NEGATIVE, Influenza Type B (RT-PCR) NEGATIVE, Respiratory Syncytial Virus (PCR) NEGATIVE CBC/BMP Laboratory Tests 11/30/20 13:16 Microbiology Microbiology 11/30/20 Blood Culture, Received Pending 11/30/20 Blood Culture, Received Pending Assessment/Plan Mrs. Merchant is an 89-year-old female with CHF with preserved ejection fraction, atrial fibrillation on anticoagulation, and hypertension who presents with shortness of breath. Patient has noticed decreased urine output despite being on diuretics. Patient also reports occasional dietary noncompliance. This may have caused her CHF exacerbation. We will check a echocardiogram to evaluate for ejection fraction. Otherwise we will diurese patient. Heart rate is slightly elevated. Will monitor in the PCU and allow for as needed IV Lopressor. Plan / VTE VTE Prophylaxis Ordered?: Yes Plan Plan 1. Acute decompensated heart failure with preserved ejection fraction Echocardiogram in 2007 demonstrated EF of 65% Obtain new echocardiogram Serum sodium diet, I's and O's, daily weights Initiate IV Lasix 2. Atrial fibrillation with RVR Continue bisoprolol and diltiazem Monitor in PCU, as needed IV Lopressor as needed Anticoagulation with Eliquis 3. Rheumatoid arthritis Continue methotrexate 4. GERD Continue pantoprazole 5. Anxiety and depression Continue paroxetine 6. Hypertension Continue candesartan, diltiazem, and bisoprolol 7. Hyperlipidemia Continue atorvastatin 8. DVT prophylaxis Patient is on Eliquis Disposition: Pending clinical improvement SABINA MANDEL DO Nov 30, 2020 16:12
[2020-11-30] MEDS ORDERED: LORA-622 PO (16:14)
[2020-11-30] MEDS ORDERED: DILT30TA PO (16:14)
[2020-11-30] MEDS ORDERED: CAND8TAB PO (16:14)
[2020-11-30] MEDS ORDERED: FURO40TA2 PO (16:14)
[2020-11-30] MEDS ORDERED: D31000TA2 PO (16:14)
[2020-11-30] MEDS ORDERED: PARO20TA3 PO (16:14)
[2020-11-30] MEDS ORDERED: HOME MED LIST COMPLETE! XX SCH (16:15)
--- NOTE | 2020-11-30 16:39 | REP ---
INDICATION: right knee pain COMPARISON: 05/25/2014 TECHNIQUE: Four views with no sunrise view FINDINGS: Advanced tricompartmental marginal osteophytosis and tricompartmental narrowing has increased from the prior exam. There is no acute fracture, dislocation, or subluxation. IMPRESSION: Advanced chronic changes as described above. <Electronically signed by Spencer Signh > 11/30/20 [id number]
[2020-11-30] MEDS ORDERED: ALBUTEROL 90 MCG/ACT 8GM HFA INHALER INH PRN (18:15)
[2020-11-30] MEDS: APIXABAN 5 MG TAB (ELIQUIS) PO SCH (22:31)
[2020-12-01 01:02] VITALS: BP 156/73
[2020-12-01 04:00] VITALS: BP 118/56
[2020-12-01 06:13] LABS: HEMATOCRIT 33.1 % (36.0-47.0); HEMOGLOBIN 10.6 g/dl (12.0-15.5); MEAN CORPUSCULAR HEMOGLOBIN 32.2 pg (27.0-33.0); MEAN CORPUSCULAR VOLUME 100.6 fl (80.0-96.0); PLATELET COUNT, AUTOMATED 247 10^3/uL (150-450); RED BLOOD COUNT 3.29 10^6/uL (4.00-5.40); WHITE BLOOD COUNT 10.7 10^3/uL (4.0-10.0)
[2020-12-01 06:46] LABS: BLOOD UREA NITROGEN 24 MG/DL (7-18); CALCIUM LEVEL 8.6 MG/DL (8.8-10.2); CARBON DIOXIDE LEVEL 31 MEQ/L (21-32); CHLORIDE LEVEL 106 MEQ/L (98-107); CREATININE FOR GFR 0.72 MG/DL (0.55-1.30); GLOMERULAR FILTRATION RATE > 60.0 (>32); GLUCOSE, FASTING 151 MG/DL (70-100); MAGNESIUM LEVEL 2.1 MG/DL (1.8-2.4); POTASSIUM SERUM 3.6 MEQ/L (3.5-5.1); SODIUM LEVEL 142 MEQ/L (136-145)
[2020-12-01 08:00] VITALS: BP 120/90
[2020-12-01] MEDS ORDERED: PREVNAR 13 VACCINE SYRINGE IM ONE (09:00)
[2020-12-01] MEDS ORDERED: FLUBLOK(EGG FREE)(QUAD)INFLUENZA VACC 0.5ML SYRINGE 18YRS & OLDER IM ONE (09:00)
[2020-12-01] MEDS: FUROSEMIDE 100MG/10ML VIAL (J1940) IV SCH ×2 (09:34→16:37)
[2020-12-01] MEDS: APIXABAN 5 MG TAB (ELIQUIS) PO SCH ×2 (09:35→20:16)
[2020-12-01] MEDS: LORATADINE 10 MG TAB PO SCH (09:35)
[2020-12-01] MEDS: MONTELUKAST 10 MG TAB PO SCH (09:35)
[2020-12-01] MEDS: MULTIVITAMINS/MINERALS THERAP 1 TAB PO SCH (09:35)
[2020-12-01] MEDS: PANTOPRAZOLE 40MG TAB (PROTONIX) PO SCH (09:36)
[2020-12-01] MEDS: PARoxetine 20MG TABLET PO SCH (09:36)
[2020-12-01] MEDS: CANDESARTAN 4MG TABLET PO SCH (09:36)
[2020-12-01] MEDS: MAGNESIUM OXIDE 400MG TAB (MAG-OX) PO SCH (09:36)
[2020-12-01] MEDS: FOLIC ACID 1 MG TAB PO SCH (09:38)
[2020-12-01] MEDS: bisoproloL fumarate 10 MG TAB PO SCH (09:38)
[2020-12-01] MEDS: VITAMIN D 1,000 INTERNATIONAL UNITS TABLET PO SCH (09:38)
--- NOTE | 2020-12-01 10:28 | IPNPDOC ---
Subjective Date Seen The patient was seen on 12/01/20. Subjective Chief Complaint/HPI Mrs. Merchant is an 89-year-old female with CHF with preserved ejection fraction, atrial fibrillation on anticoagulation, and hypertension who presents with shortness of breath. This morning, she feels fatigued, she hasn't slept well all week. Otherwise, she still has some dyspnea. Denies chest pain. Objective Physical Examination General Exam: Positive: Alert, Cooperative Eye Exam: Positive: EOMI; Negative: Sclera icteric ENT Exam: Positive: Atraumatic Neck Exam: Positive: Supple Chest Exam: Positive: Wheezing, Diminished Heart Exam: Positive: Tachycardic, Irregular Rhythm Abdomen Exam: Positive: Normal bowel sounds, Soft; Negative: Tenderness Extremity Exam: Positive: Edema (Mild bilateral pedal) Neuro Exam: Positive: Normal Speech, Cranial Nerves 3-12 NL Psych Exam: Positive: Mental status NL, Mood NL Assessment /Plan Assessment Mrs. Merchant is an 89-year-old female with CHF with preserved ejection fraction, atrial fibrillation on anticoagulation, and hypertension who presents with shortness of breath. Patient has noticed decreased urine output despite being on diuretics. Patient also reports occasional dietary noncompliance. This may have caused her CHF exacerbation. We will order an echocardiogram to evaluate for ejection fraction. Otherwise we will diurese patient. Heart rate is slightly elevated. Will monitor in the PCU and allow for as needed IV Lopressor. Plan/VTE VTE Prophylaxis Ordered?: Yes Plan 1. Acute decompensated heart failure with preserved ejection fraction Echocardiogram in 2007 demonstrated EF of 65% Obtain new echocardiogram Serum sodium diet, I's and O's, daily weights Initiate IV Lasix 2. Atrial fibrillation with RVR Continue bisoprolol and diltiazem Monitor in PCU, as needed IV Lopressor as needed Anticoagulation with Eliquis 3. Rheumatoid arthritis Continue methotrexate 4. GERD Continue pantoprazole 5. Anxiety and depression Continue paroxetine 6. Hypertension Continue candesartan, diltiazem, and bisoprolol 7. Hyperlipidemia Continue atorvastatin 8. DVT prophylaxis Patient is on Eliquis Disposition: Pending clinical improvement VS, I&O, 24H, Fishbone Vital Signs/I&O Vital Signs Date Time Temp Pulse Resp B/P (MAP) Pulse Ox O2 Delivery O2 Flow Rate FiO2 12/01/20 09:37 92 120/90 12/01/20 08:00 98.0 16 96 Nasal Cannula 2.0 I&O- Last 24 Hours up to 6 AM 12/01/20 06:00 Intake Total 60 ml Output Total 250 ml Balance -190 ml Laboratory Data 24H LABS Laboratory Tests 2 11/30/20 13:04: POC pH (Misc Panel) 7.445, POC Base Excess (Misc Panel) 6.0H, POC Saturated Percent O2 (Misc) 97, POC pO2 (Misc Panel) 87.0, POC pCO2 (Misc Panel) 43.3, POC HCO3 (Misc Panel) 29.8H, POC Total CO2 (Misc Panel) 31.0H 11/30/20 13:16: Immature Granulocyte % (Auto) 0.8, Neutrophils (%) (Auto) 91.1H, Lymphocytes (%) (Auto) 3.9L, Monocytes (%) (Auto) 3.5, Eosinophils (%) (Auto) 0.5, Basophils (%) (Auto) 0.2, Neutrophils # (Auto) 11.8H, Lymphocytes # (Auto) 0.5L, Monocytes # (Auto) 0.5, Eosinophils # (Auto) 0.1, Basophils # (Auto) 0.0, Nucleated Red Blood Cells % (auto) 0.0, Anion Gap 8, Glomerular Filtration Rate > 60.0, Lactic Acid Level 1.9, Calcium Level 8.8, Total Bilirubin 1.1H, Direct Bilirubin 0.4H, Aspartate Amino Transf (AST/SGOT) 43H, Alanine Aminotransferase (ALT/SGPT) 36, Alkaline Phosphatase 82, Total Creatine Kinase 64, Creatine Kinase MB 2.0, Creatine Kinase MB Relative Index 3.12, Troponin I < 0.02, PT-Nvl-D-Type Natriuretic Peptide 8187H, Total Protein 6.7, Albumin 3.0L, Albumin/Globulin Ratio 0.8L, Thyroid Stimulating Hormone (TSH) 1.900, Thyroxine (T4) 7.3, Coronavirus (COVID-19)(PCR) NEGATIVE, Influenza Type A (RT-PCR) NEGATIVE, Influenza Type B (RT-PCR) NEGATIVE, Respiratory Syncytial Virus (PCR) NEGATIVE 12/01/20 05:48: Nucleated Red Blood Cells % (auto) 0.0, Anion Gap 5L, Glomerular Filtration Rate > 60.0, Calcium Level 8.6L, Magnesium Level 2.1 CBC/BMP Laboratory Tests 11/30/20 13:16 12/01/20 05:48 Microbiology Microbiology 11/30/20 Blood Culture, Received Pending 11/30/20 Blood Culture, Received Pending SABINA MANDEL DO Dec 01, 2020 10:28
[2020-12-01 12:00] VITALS: BP 129/58
[2020-12-01 16:00] VITALS: BP 130/60
[2020-12-01 20:00] VITALS: BP 138/63
[2020-12-02] VITALS (7 sets, daily range): BP systolic 121–170; BP diastolic 60–88
[2020-12-02 03:30] LABS: HEMATOCRIT 33.7 % (36.0-47.0); HEMOGLOBIN 10.7 g/dl (12.0-15.5); MEAN CORPUSCULAR HGB CONC 31.8 g/dl (32.0-36.5); MEAN CORPUSCULAR VOLUME 100.9 fl (80.0-96.0); PLATELET COUNT, AUTOMATED 279 10^3/uL (150-450); RED BLOOD COUNT 3.34 10^6/uL (4.00-5.40); WHITE BLOOD COUNT 17.8 10^3/uL (4.0-10.0)
[2020-12-02 03:48] LABS: CALCIUM LEVEL 8.7 MG/DL (8.8-10.2); CREATININE FOR GFR 0.99 MG/DL (0.55-1.30); GLOMERULAR FILTRATION RATE 56.2 (>32); MAGNESIUM LEVEL 2.1 MG/DL (1.8-2.4); POTASSIUM SERUM 4.1 MEQ/L (3.5-5.1)
[2020-12-02] MEDS: PARoxetine 20MG TABLET PO SCH (10:04)
[2020-12-02] MEDS: FUROSEMIDE 100MG/10ML VIAL (J1940) IV SCH ×2 (10:04→16:15)
[2020-12-02] MEDS: CANDESARTAN 4MG TABLET PO SCH (10:05)
[2020-12-02] MEDS: bisoproloL fumarate 10 MG TAB PO SCH (10:05)
[2020-12-02] MEDS: VITAMIN D 1,000 INTERNATIONAL UNITS TABLET PO SCH (10:05)
[2020-12-02] MEDS: MULTIVITAMINS/MINERALS THERAP 1 TAB PO SCH (10:06)
[2020-12-02] MEDS: FOLIC ACID 1 MG TAB PO SCH (10:06)
[2020-12-02] MEDS: APIXABAN 5 MG TAB (ELIQUIS) PO SCH ×2 (10:06→20:09)
[2020-12-02] MEDS: MONTELUKAST 10 MG TAB PO SCH (10:06)
[2020-12-02] MEDS: PANTOPRAZOLE 40MG TAB (PROTONIX) PO SCH (10:06)
[2020-12-02] MEDS: MAGNESIUM OXIDE 400MG TAB (MAG-OX) PO SCH (10:06)
[2020-12-02] MEDS: LORATADINE 10 MG TAB PO SCH (10:07)
--- NOTE | 2020-12-02 13:54 | IPNPDOC ---
Subjective Date Seen The patient was seen on 12/02/20. Subjective Chief Complaint/HPI Mrs. Merchant is an 89-year-old female with CHF with preserved ejection fraction, atrial fibrillation on anticoagulation, and hypertension who presents with shortness of breath. This morning, she is feeling tired, because she was unable to sleep last night. We will add on Rozerem. Otherwise denies any chest pain. Shortness of breath is improved, but patient still requires 2 L of oxygen Objective Physical Examination General Exam: Positive: Alert, Cooperative Eye Exam: Positive: EOMI; Negative: Sclera icteric ENT Exam: Positive: Atraumatic Neck Exam: Positive: Supple Chest Exam: Positive: Diminished Heart Exam: Positive: Rate Normal, Irregular Rhythm Abdomen Exam: Positive: Normal bowel sounds, Soft; Negative: Tenderness Extremity Exam: Positive: Edema (Mild bilateral pedal) Neuro Exam: Positive: Normal Speech, Cranial Nerves 3-12 NL Psych Exam: Positive: Mental status NL, Mood NL Assessment /Plan Assessment Mrs. Merchant is an 89-year-old female with CHF with preserved ejection fraction, atrial fibrillation on anticoagulation, and hypertension who presents with shortness of breath. Patient has noticed decreased urine output despite being on diuretics. Patient also reports occasional dietary noncompliance. This may have caused her CHF exacerbation. We will order an echocardiogram to evaluate for ejection fraction. Otherwise we will diurese patient. Heart rate is slightly elevated. Will monitor in the PCU and allow for as needed IV Lopressor. Plan/VTE VTE Prophylaxis Ordered?: Yes Plan 1. Acute decompensated heart failure with preserved ejection fraction Echocardiogram in 2007 demonstrated EF of 65% Obtain new echocardiogram Serum sodium diet, I's and O's, daily weights Continue with IV Lasix 2. Atrial fibrillation with RVR Continue bisoprolol and diltiazem Monitor in PCU, as needed IV Lopressor as needed Anticoagulation with Eliquis 3. Rheumatoid arthritis Continue methotrexate 4. GERD Continue pantoprazole 5. Anxiety and depression Continue paroxetine 6. Hypertension Continue candesartan, diltiazem, and bisoprolol 7. Hyperlipidemia Continue atorvastatin 8. DVT prophylaxis Patient is on Eliquis Disposition: Pending clinical improvement. Physical therapy recommending rehab. VS, I&O, 24H, Fishbone Vital Signs/I&O Vital Signs Date Time Temp Pulse Resp B/P (MAP) Pulse Ox O2 Delivery O2 Flow Rate FiO2 12/02/20 12:00 2.0 12/02/20 12:00 146/88 (107) Nasal Cannula 12/02/20 10:05 96 12/02/20 08:00 96.9 18 96 I&O- Last 24 Hours up to 6 AM 12/02/20 06:00 Intake Total 300 ml Output Total 900 ml Balance -600 ml Laboratory Data 24H LABS Laboratory Tests 2 12/02/20 02:14: Nucleated Red Blood Cells % (auto) 0.0, Anion Gap 7L, Glomerular Filtration Rate 56.2, Calcium Level 8.7L, Magnesium Level 2.1 CBC/BMP Laboratory Tests 12/02/20 02:14 Microbiology Microbiology 11/30/20 Blood Culture - Preliminary, Resulted No Growth after 48 hours. All Specime... 11/30/20 Blood Culture - Preliminary, Resulted SABINA MANDEL DO Dec 02, 2020 13:54
[2020-12-02] MEDS ORDERED: hydrALAZINE 20MG/ML 1ML VIAL (J0360 PER 20MG) IV PRN (15:50)
--- NOTE | 2020-12-02 16:19 | ECHO ---
ECHOCARDIOGRAM DATE OF PROCEDURE: 12/02/2020 Age: Gender: Female Height: 52 inches Weight: 185 pounds REFERRING PHYSICIAN: Nemesio Guajardo M.D. INDICATION: Atrial fibrillation. MEASUREMENTS: 2D Measurements: Aortic root 2.8 cm Proximal ascending aorta 3.1 cm Left atrium 4.0 cm Intraventricular septum 1.18 cm Posterior wall 1.10 cm Left ventricle diastole 4.4 cm Left ventricle systole 2.8 cm Inferior vena cava 2.7 cm with marked reduction of respiratory variation Doppler Measurements: No aortic stenosis No aortic regurgitation Aortic valve velocity 120 cm/sec LVOT velocity 94 cm/sec Moderate mitral regurgitation No mitral stenosis Moderate tricuspid regurgitation Estimated right ventricle systolic pressure at least 21 mmHg Estimated right pressure of at least 20 mmHg Mild pulmonic regurgitation Pulmonary acceleration time 85 msec DESCRIPTION: Rhythm was atrial fibrillation with controlled ventricular response. Image quality was good. This was a 2D, M-mode, color flow Doppler and pulse wave Doppler examination. CONCLUSIONS: 1. Normal left ventricle internal dimensions and wall thickness. Normal regional left ventricular (LV) wall motion and wall thickening. Normal LV systolic function. Left ventricular ejection fraction (LVEF) 60% (3D quantification). 2. Moderate mitral annular calcification with moderate mitral regurgitation. No mitral valve prolapse. No mitral stenosis. 3. Mild left atrial dilatation. 4. Suggestive of severe elevation of estimated right ventricle systolic pressure (at least 61 mmHg). Structurally normal tricuspid leaflets. Moderate tricuspid regurgitation. Normal right ventricle size and systolic function. At least moderate right atrial dilatation by visual assessment. Inferior vena cava dilatation with marked reduction of respiratory variation suggestive of central venous pressure (CVP) of at least 20 mmHg. 5. No pericardial effusion.
--- NOTE | 2020-12-02 19:45 | ECGEPIP ---
[facility] - ED Test Date: 2020-11-30 Pat Name: KASHMIR INGRAM Department: Room: - Gender: Female [employer] Work[employer]: KG : 1930 Requested By: JUAN C LIM Order Number: [id number] Reading MD: Florinda Camarena Measurements Intervals [place] Rate: 105 P: ID: QRS: -32 QRSD: 84 T: 27 QT: 350 QTc: 462 Interpretive Statements atrial fibrillation Left axis deviation Nonspecific ST abnormality Electronically Signed on 12-02-2020 19:45:41 EDT by Florinda Camarena
[2020-12-02] MEDS: RAMELTEON 8 MG TAB (ROZEREM) PO SCH (20:09)
[2020-12-03] VITALS: BP 130/58
[2020-12-03 03:48] VITALS: BP 135/93
[2020-12-03 05:23] LABS: HEMATOCRIT 34.6 % (36.0-47.0); MEAN CORPUSCULAR HEMOGLOBIN 32.2 pg (27.0-33.0); MEAN CORPUSCULAR HGB CONC 31.8 g/dl (32.0-36.5); MEAN CORPUSCULAR VOLUME 101.2 fl (80.0-96.0); PLATELET COUNT, AUTOMATED 260 10^3/uL (150-450); RED BLOOD COUNT 3.42 10^6/uL (4.00-5.40); WHITE BLOOD COUNT 11.6 10^3/uL (4.0-10.0)
[2020-12-03 05:37] LABS: BLOOD UREA NITROGEN 36 MG/DL (7-18); CALCIUM LEVEL 8.3 MG/DL (8.8-10.2); CARBON DIOXIDE LEVEL 34 MEQ/L (21-32); CHLORIDE LEVEL 103 MEQ/L (98-107); CREATININE FOR GFR 0.82 MG/DL (0.55-1.30); GLOMERULAR FILTRATION RATE > 60.0 (>32); GLUCOSE, FASTING 111 MG/DL (70-100); POTASSIUM SERUM 3.7 MEQ/L (3.5-5.1); SODIUM LEVEL 143 MEQ/L (136-145)
[2020-12-03 08:00] VITALS: BP 166/82
--- NOTE | 2020-12-03 09:50 | REP ---
INDICATION: Productive cough, dyspnea, pneumonitis on CXR. COMPARISON: CT 12/29/2017, radiograph 11/30/2020. TECHNIQUE: CT chest performed without the use of intravenous contrast. Sagittal and coronal reconstruction images are performed. FINDINGS: Lungs: Diffuse scattered, heterogeneous ground-glass and interstitial opacities are seen bilaterally in the lungs, predominantly in the perihilar regions. Mediastinum: There appears to be a 3 cm right paratracheal mass which is not optimally evaluated due to the lack of IV contrast. There is mild subcarinal adenopathy 1.6 cm in short axis. Enlarged right cardiophrenic lymph node measures 2.3 x 1.3 cm. Suzanne: No gross adenopathy. Axilla: No gross adenopathy. Pleura: There is a moderate right pleural effusion. Heart: Heart is [id number] enlarged. Thoracic aorta: No aneurysm. Upper abdominal structures: A right adrenal nodule is unchanged since 2018, measuring 2.2 cm in maximum diameter. Visualized osseous structures: There is mild compression of the T8 vertebral body which is new since 2018, exact age is indeterminate. There are diffuse degenerative changes of the spine. IMPRESSION: Diffuse bilateral ground-glass and interstitial infiltrates predominantly in the perihilar regions with moderate right pleural effusion and cardiomegaly. The findings suggest CHF and pulmonary edema. Correlate clinically. Right paratracheal mass/adenopathy 3 cm. Adenopathy is also seen in the subcarinal region and at the right cardiophrenic angle. Follow-up recommended. Mild compression of T8 vertebral body of indeterminate age. <Electronically signed by Pacheco Rubio > 12/03/20 [id number]
[2020-12-03] MEDS: PARoxetine 20MG TABLET PO SCH (10:07)
[2020-12-03] MEDS: APIXABAN 5 MG TAB (ELIQUIS) PO SCH ×2 (10:07→20:12)
[2020-12-03] MEDS: LORATADINE 10 MG TAB PO SCH (10:07)
[2020-12-03] MEDS: MULTIVITAMINS/MINERALS THERAP 1 TAB PO SCH (10:07)
[2020-12-03] MEDS: MONTELUKAST 10 MG TAB PO SCH (10:07)
[2020-12-03] MEDS: FUROSEMIDE 100MG/10ML VIAL (J1940) IV SCH ×2 (10:07→18:05)
[2020-12-03] MEDS: PANTOPRAZOLE 40MG TAB (PROTONIX) PO SCH (10:07)
[2020-12-03] MEDS: MAGNESIUM OXIDE 400MG TAB (MAG-OX) PO SCH (10:07)
[2020-12-03] MEDS: bisoproloL fumarate 10 MG TAB PO SCH (10:08)
[2020-12-03] MEDS: CANDESARTAN 4MG TABLET PO SCH (10:08)
[2020-12-03] MEDS: FOLIC ACID 1 MG TAB PO SCH (10:09)
[2020-12-03] MEDS: VITAMIN D 1,000 INTERNATIONAL UNITS TABLET PO SCH (10:09)
[2020-12-03 12:00] VITALS: BP 112/57
--- NOTE | 2020-12-03 12:48 | IPNPDOC ---
Subjective Date Seen The patient was seen on 12/03/20. Subjective Chief Complaint/HPI Mrs. Merchant is an 89-year-old female with CHF with preserved ejection fraction, atrial fibrillation on anticoagulation, and hypertension who presents with shortness of breath. She is sleeping better with Rozerem. This morning, she denies chest pain or dyspnea, but still requiring 2L of oxygen. Otherwise, she has a productive cough, but says that this is chronic. No change in frequency or amount of sputum. Ordered for CT chest. Still demonstrates CHF. Will add on metolazone to help with diuresis. PT recommended rehab. Added on OT today. Otherwise, one of two blood cultures grew Staph Hominis and micrococcus luteus. Patient is afebrile. This may be a contaminant. Shayne a second set of blood cultures. If patient develops a fever, would recommend starting antibiotics. Objective Physical Examination General Exam: Positive: Alert, Cooperative Eye Exam: Positive: EOMI; Negative: Sclera icteric ENT Exam: Positive: Atraumatic Neck Exam: Positive: Supple Chest Exam: Positive: Diminished Heart Exam: Positive: Rate Normal, Irregular Rhythm Abdomen Exam: Positive: Normal bowel sounds, Soft; Negative: Tenderness Extremity Exam: Positive: Edema (Mild bilateral pedal) Neuro Exam: Positive: Normal Speech, Cranial Nerves 3-12 NL Psych Exam: Positive: Mental status NL, Mood NL Assessment /Plan Assessment Mrs. Merchant is an 89-year-old female with CHF with preserved ejection fraction, atrial fibrillation on anticoagulation, and hypertension who presents with shortness of breath. Patient has noticed decreased urine output despite being on diuretics. Patient also reports occasional dietary noncompliance. This may have caused her CHF exacerbation. Echocardiogram demonstrates EF of 60%. Otherwise we will diurese patient. Heart rate is slightly elevated. Will monitor in the PCU and allow for as needed IV Lopressor. Plan/VTE VTE Prophylaxis Ordered?: Yes Plan 1. Acute decompensated heart failure with preserved ejection fraction Echocardiogram in 2007 demonstrated EF of 65% Echocardiogram 12/02/2020 demonstrates EF of 60% Serum sodium diet, I's and O's, daily weights Continue with IV Lasix Added on metolazone to help with diuresis 2. Atrial fibrillation with RVR Continue bisoprolol and diltiazem Monitor in PCU, as needed IV Lopressor as needed Anticoagulation with Eliquis 3. Rheumatoid arthritis Continue methotrexate 4. GERD Continue pantoprazole 5. Anxiety and depression Continue paroxetine 6. Hypertension Continue candesartan, diltiazem, and bisoprolol 7. Hyperlipidemia Continue atorvastatin 8. DVT prophylaxis Patient is on Eliquis Disposition: Pending clinical improvement and improvement in oxygen status. Physical therapy recommending rehab. Added on OT VS, I&O, 24H, Fishbone Vital Signs/I&O Vital Signs Date Time Temp Pulse Resp B/P (MAP) Pulse Ox O2 Delivery O2 Flow Rate FiO2 12/03/20 10:08 77 166/82 12/03/20 08:00 97.5 22 90 Nasal Cannula 2.0 I&O- Last 24 Hours up to 6 AM 12/03/20 06:00 Intake Total 840 ml Output Total 2100 ml Balance -1260 ml Laboratory Data 24H LABS Laboratory Tests 2 12/03/20 04:47: Nucleated Red Blood Cells % (auto) 0.0, Anion Gap 6L, Glomerular Filtration Rate > 60.0, Calcium Level 8.3L, Magnesium Level 2.0 CBC/BMP Laboratory Tests 12/03/20 04:47 Microbiology Microbiology 12/03/20 Gram Stain - Final, Complete 12/03/20 Sputum Culture - Final, Complete 12/03/20 Blood Culture, Received Pending 12/03/20 Blood Culture, Received Pending 11/30/20 Blood Culture - Preliminary, Resulted No Growth after 48 hours. All Specime... 11/30/20 Blood Culture - Final, Complete Staphylococcus Hominis Ssp Ulises Micrococcus Luteus SABINA MANDEL DO Dec 03, 2020 12:48
[2020-12-03] MEDS: ANALGESIC BALM CRM 3OZ TOP PRN (13:37)
[2020-12-03] MEDS: metOLazone 2.5 MG TAB PO SCH (13:37)
[2020-12-03 16:00] VITALS: BP 142/65
[2020-12-03 20:00] VITALS: BP 112/63
[2020-12-03] MEDS: RAMELTEON 8 MG TAB (ROZEREM) PO SCH (20:12)
[2020-12-04] VITALS (7 sets, daily range): BP systolic 109–126; BP diastolic 56–68
[2020-12-04 05:31] LABS: HEMATOCRIT 37.8 % (36.0-47.0); HEMOGLOBIN 12.3 g/dl (12.0-15.5); MEAN CORPUSCULAR HEMOGLOBIN 32.3 pg (27.0-33.0); MEAN CORPUSCULAR HGB CONC 32.5 g/dl (32.0-36.5); MEAN CORPUSCULAR VOLUME 99.2 fl (80.0-96.0); PLATELET COUNT, AUTOMATED 271 10^3/uL (150-450); RED BLOOD COUNT 3.81 10^6/uL (4.00-5.40); WHITE BLOOD COUNT 13.6 10^3/uL (4.0-10.0)
[2020-12-04 05:45] LABS: BLOOD UREA NITROGEN 34 MG/DL (7-18); CALCIUM LEVEL 9.2 MG/DL (8.8-10.2); CARBON DIOXIDE LEVEL 35 MEQ/L (21-32); CHLORIDE LEVEL 98 MEQ/L (98-107); GLOMERULAR FILTRATION RATE > 60.0 (>32); GLUCOSE, FASTING 127 MG/DL (70-100); MAGNESIUM LEVEL 1.9 MG/DL (1.8-2.4); POTASSIUM SERUM 3.6 MEQ/L (3.5-5.1); SODIUM LEVEL 138 MEQ/L (136-145)
--- NOTE | 2020-12-04 08:24 | IPN ---
PROGRESS NOTE DATE: 12/04/2020 SUBJECTIVE: The patient was seen and examined at the bedside. Chart has been reviewed. Overnight patient remains in A fib but rate controlled. She denies any chest pain, shortness of breath, PND or orthopnea, paroxysmal nocturnal dyspnea, dyspnea on exertion. The patient complains of generalized weakness, no cough, fever or chills, nausea, vomiting, diaphoresis, palpitations, lightheadedness or dizziness. The patient has no other complaints. She says that her daughter lives next door to her. She lives alone and her son-in-law usually makes her meals. She usually does not drink more than two liters of liquids every day at home and she has her streetcar dispatcher, Dr. Quiroz who follows her usually. No other issues per nursing overnight. Input was 600 overnight, output of 950, negative 350 yesterday from midnight, negative 1.330 liters. Current weight is 80.2 kilos with the highest weight of 84.2 kilograms. The patient says that her baseline dry weight is 183 lb at home. OBJECTIVE: Vital signs: Temperature 97, pulse 91, irregularly irregular. A fib on telemetry. Respiratory rate 17, blood pressure 109/65, 94% on room air. General: Awake, alert and oriented to herself, answering questions appropriately. No use of respiratory accessory muscles, no JVD, no thyromegaly or cervical lymphadenopathy. HEENT: Moist mucous membranes. Lungs: Diminished with bilateral wheezing. Heart: S1, S2, irregularly irregular. Abdomen: Soft, nontender, nondistended, positive bowel sounds. Extremities: No cyanosis, clubbing, no pitting edema. LABORATORY DATA: Imaging studies, microbiology have all been reviewed, notable for elevated white count of 13.6 decreased from 17.8 on 12/02/2020. Creatinine is normal of 0.80. No electrolyte abnormalities. Chest CT: CHF on 12/03/2020. Microbiology notable for Staph hominis and micrococcus luteus on blood culture, one of two sets on 11/30, most likely contamination. HOSPITAL MEDICATIONS: Methotrexate, metolazone, Bengay, Rozeremas needed, mag ox, Paxil, Protonix, Multivitamin, Singulair, Claritin, folic acid, vitamin D, candesartan, Zebeta, Lasix, Cardizem, apixaban, albuterol, metoprolol and acetaminophen. ASSESSMENT AND PLAN: This is an 89-year-old, do not resuscitate, do not intubate female who lives alone with daughter who lives next door admitted on 11/30/2020 with past medical history significant for diastolic congestive heart failure with preserved ejection fraction with echo showing ejection fraction of 65%, September,, hypertension, rheumatoid arthritis, A fib and depression, complained of shortness of breath, found to have salt intake indiscretion, found to have A fib with RVR and [id number] diastolic congestive heart failure exacerbation. ACTIVE ISSUES: 1. Acute decompensated CHF with preserved systolic ejection fraction with EF of 65%, diastolic dysfunction. Patient is placed on a 2 gm sodium diet, strict I&Os, daily weights and has been negative balance. Her dry weight is usually 183 lb. Patient is diuresing well without any electrolyte abnormalities as well as normal creatinine. Continue with Lasix 50 IV twice daily. 2. A fib with RVR currently controlled on bisoprolol and diltiazem. Still kept on telemetry with weight control, continued on Eliquis for anticoagulation for CVA prophylaxis. 3. Rheumatoid arthritis. On chronic methotrexate. 4. Contaminated blood culture with Staph hominis and micrococcus luteus. Despite elevated white blood cell count, this is most likely not a true infection. No antibiotics are needed. Patient has remained afebrile. This was one of two sets of blood cultures on hospital admission. Would repeat two sets of blood cultures being negative. 5. Anxiety/depression, on fluoxetine. 6. Hypertension, on candesartan, diltiazem and bisoprolol, currently still on Lasix IV b.i.d. 7. Hyperlipidemia on chronic atorvastatin. DISPOSITION: The patient is being evaluated by physical therapy and occupational therapy. She currently lives alone with recommendations for rehab once the patient is medically stable. APARNA
[2020-12-04] MEDS ORDERED: METHOTREXATE 2.5 MG TAB (J8610 PER 2.5MG) PO SCH (09:00)
[2020-12-04] MEDS ORDERED: ONDANSETRON 4MG/2ML VIAL IV PRN ×2 (10:20→10:40)
[2020-12-04] MEDS ORDERED: ONDANSETRON 4MG/2ML VIAL IV ONE (10:20)
[2020-12-04] MEDS ORDERED: FUROSEMIDE injection 250 MG in D5W 225 ML IV SCH (11:00)
[2020-12-04] MEDS: PARoxetine 20MG TABLET PO SCH (11:01)
[2020-12-04] MEDS: VITAMIN D 1,000 INTERNATIONAL UNITS TABLET PO SCH (11:02)
[2020-12-04] MEDS: bisoproloL fumarate 10 MG TAB PO SCH (11:02)
[2020-12-04] MEDS: LORATADINE 10 MG TAB PO SCH (11:02)
[2020-12-04] MEDS: PANTOPRAZOLE 40MG TAB (PROTONIX) PO SCH (11:02)
[2020-12-04] MEDS: FOLIC ACID 1 MG TAB PO SCH (11:03)
[2020-12-04] MEDS: APIXABAN 5 MG TAB (ELIQUIS) PO SCH ×2 (11:03→20:31)
[2020-12-04] MEDS: MULTIVITAMINS/MINERALS THERAP 1 TAB PO SCH (11:03)
[2020-12-04] MEDS: MONTELUKAST 10 MG TAB PO SCH (11:03)
[2020-12-04] MEDS: MAGNESIUM OXIDE 400MG TAB (MAG-OX) PO SCH (11:03)
[2020-12-04] MEDS: metOLazone 2.5 MG TAB PO SCH (11:03)
[2020-12-04] MEDS: ANALGESIC BALM CRM 3OZ TOP PRN (11:07)
[2020-12-04] MEDS ORDERED: MAG SULF 1GM/100ML (MAG RUN) 1 GM in IV 1 EA IV ONE (11:30)
[2020-12-04] MEDS ORDERED: POTASSIUM CHLORIDE 10MEQ SR TABLET PO ONE (11:30)
[2020-12-04] MEDS: RAMELTEON 8 MG TAB (ROZEREM) PO SCH (20:31)
[2020-12-05] VITALS: BP 92/51
[2020-12-05 04:00] VITALS: BP 136/62
[2020-12-05 05:37] LABS: HEMATOCRIT 40.5 % (36.0-47.0); HEMOGLOBIN 13.1 g/dl (12.0-15.5); MEAN CORPUSCULAR HEMOGLOBIN 32.2 pg (27.0-33.0); MEAN CORPUSCULAR HGB CONC 32.3 g/dl (32.0-36.5); MEAN CORPUSCULAR VOLUME 99.5 fl (80.0-96.0); PLATELET COUNT, AUTOMATED 280 10^3/uL (150-450); RED BLOOD COUNT 4.07 10^6/uL (4.00-5.40); WHITE BLOOD COUNT 18.5 10^3/uL (4.0-10.0)
[2020-12-05 05:56] LABS: CALCIUM LEVEL 9.2 MG/DL (8.8-10.2); CREATININE FOR GFR 0.99 MG/DL (0.55-1.30); GLOMERULAR FILTRATION RATE 56.2 (>32); POTASSIUM SERUM 3.6 MEQ/L (3.5-5.1)
[2020-12-05] MEDS ORDERED: POTASSIUM CHLORIDE 10MEQ SR TABLET PO ONE (07:30)
[2020-12-05 07:31] VITALS: BP 112/58
--- NOTE | 2020-12-05 08:16 | REP ---
INDICATION: SOB. COMPARISON: 11/30/2020 TECHNIQUE: Portable FINDINGS: The technique utilized in obtaining the radiograph has magnified the cardiac silhouette and accentuated the interstitial markings. The cardiomediastinal silhouette is unchanged. There is mild cardiomegaly accentuated by technique. There is increased inspiration on today's exam. Chronic bibasilar opacities are noted with slight CP angle blunting status quo. No new patchy parenchymal opacities or pleural effusions have developed. There is no change in the osseous structures. IMPRESSION: Increased inspiratory effort. No acute cardiopulmonary disease. Chronic bibasilar changes <Electronically signed by Spencer Singh > 12/05/20 [id number]
--- NOTE | 2020-12-05 09:39 | IPNPDOC ---
Date Seen The patient was seen on 12/05/20. Progress Note PATIENT REQUESTED TO WITHDRAW CARE AND BE CHILDREN'S AUTHOR. FAMILY AGREES. PLAN: HOSPICE CONSULT CHILDREN'S AUTHOR DNR DNI DC ALL ACTIVE MEDS CHILDREN'S AUTHOR MEDS PRN TRANSFER TO MED SURG DC TELE VS, I&O, 24H, Fishbone Vital Signs/I&O Vital Signs Date Time Temp Pulse Resp B/P (MAP) Pulse Ox O2 Delivery O2 Flow Rate FiO2 12/05/20 08:00 2.0 12/05/20 07:31 97.9 104 20 112/58 (76) 94 Nasal Cannula I&O- Last 24 Hours up to 6 AM 12/05/20 06:00 Intake Total 510 ml Output Total 2100 ml Balance -1590 ml Laboratory Data 24H LABS Laboratory Tests 2 12/05/20 05:17: Nucleated Red Blood Cells % (auto) 0.0, Anion Gap 6L, Glomerular Filtration Rate 56.2, Calcium Level 9.2, Magnesium Level 2.0 CBC/BMP Laboratory Tests 12/05/20 05:17 Microbiology Microbiology 12/03/20 Gram Stain - Final, Complete 12/03/20 Sputum Culture - Final, Complete 12/03/20 Blood Culture - Preliminary, Resulted No growth after 24 hours . All specim... 12/03/20 Blood Culture - Preliminary, Resulted No Growth after 48 hours. All Specime... 11/30/20 Blood Culture - Preliminary, Resulted No Growth after 72 hours. All specime... 11/30/20 Blood Culture - Final, Complete Staphylococcus Hominis Ssp Ulises Micrococcus Luteus STEWART GILLESPIE MD Dec 05, 2020 09:39
[2020-12-05] MEDS ORDERED: MORPHINE 10MG/0.5ML ORAL CONCENTRATE SOLUTION U/D SL PRN (09:40)
[2020-12-05] MEDS ORDERED: ATROPINE SULFATE 1% OP SOLN 2 ML BTL SL PRN (09:40)
--- NOTE | 2020-12-05 12:20 | IPN ---
PROGRESS NOTE DATE: 12/05/2020 SUBJECTIVE: Patient still complains of cough productive of white sputum. No signs of aspiration, fever or chills overnight. Shortness of breath is the same. She is still on 2 liters of nasal cannula, net negative balance. She complained of slight dizziness when she moved from the bed to the bedside commode, no near syncope. Yesterday's telemetry in the afternoon had PVCs, magnesium and potassium were optimized. OBJECTIVE: VITAL SIGNS: Temperature 96.9, pulse 79, respiratory rate 17, blood pressure 136/62, 100% on 2 liters nasal cannula. GENERAL: Alert, awake, oriented to herself, pleasantly confused, cooperative, no distress this morning or use of respiratory accessory muscles. NECK: No JVD or thyromegaly. No cervical lymphadenopathy. HEENT: Moist mucous membranes. LUNGS: Diminished with coarse rhonchi, bilateral faint wheezes. HEART: S1 and S2, irregularly irregular, not tachycardic. ABDOMEN: Soft, nontender and nondistended. Positive bowel sounds. No rebound or guarding. No hepatosplenomegaly. EXTREMITIES: No cyanosis, clubbing or pitting edema. LABORATORY DATA/IMAGING STUDIES/MICROBIOLOGY: Have been reviewed, please see the chart. HOSPITAL MEDICATIONS: 1. Lasix drip. 2. Zofran. 3. Methotrexate. 4. Metolazone. 5. Shaggy-Yoon cream. 6. Rozerem. 7. Hydralazine. 8. Mag-Ox. 9. Paxil. 10.Protonix. 11.Multivitamin. 12.Montelukast. 13.Claritin. 14.Folic acid. 15.Vitamin D. 16.Bisoprolol. 17.Diltiazem. 18.Apixaban. 19.Albuterol. 20.Metoprolol. 21.Acetaminophen. ASSESSMENT AND PLAN: This is an 89-year-old female with a history of diastolic congestive heart failure with preserved systolic function. She lives alone with daughter living next door, rheumatoid arthritis, hypertension, atrial fibrillation, depression, presented with shortness of breath, found to have congestive heart failure due to dietary indiscretion with increased salt intake as well as atrial fibrillation with RVR. IMPRESSION: 1. Acute on chronic diastolic congestive heart failure, preserved systolic ejection fraction. Patient has been net negative balance, her dry weight is 183 pounds. Patient had increasing shortness of breath yesterday and due to concerns of hypotension with systolic pressure of 92/51 the patient has been put on Lasix drip. She kept on metoprolol and Cardizem for rate control. Candesartan has been held and the patient is euvolemic. We will recheck a chest x-ray today and follow BNP levels until she is back to baseline, as needed hydralazine for a systolic pressure greater than 160. Strict I and O's, daily weights, then 1.5 liter fluid restriction, monitor potassium and magnesium and supplement as needed. 2. Premature ventricular complexes secondary to electrolyte abnormalities, potassium to be kept greater than 4, magnesium of 2. No acute coronary syndrome or complaints of chest pain. 3. Atrial fibrillation with RVR, currently rate controlled on Bisoprolol and Diltiazem, hypertension, Candesartan has been held until the patient is euvolemic to allow for enough blood pressure for diuresis with Lasix drip. 4. Rheumatoid arthritis, on chronic methotrexate. 5. Contaminated blood cultures with Staph hominis and micrococcus luteus. No antibiotics needed, remains afebrile. One of two sets were positive for Staph hominis. 6. Anxiety/depression, on fluoxetine. 7. Hypertension, currently on Diltiazem and Bisoprolol. Candesartan has been held while the patient is on Lasix drip. 8. Hyperlipidemia, on chronic atorvastatin. DISPOSITION: Repeat chest x-ray today, continue diuresis and net negative balance until she is euvolemic two to three more days, patient will need PT/OT and has not been out of bed since admission. MTDD
[2020-12-05] MEDS: MORPHINE 10MG/0.5ML ORAL CONCENTRATE SOLUTION U/D SL PRN ×2 (15:50→18:35)
[2020-12-05] MEDS: RAMELTEON 8 MG TAB (ROZEREM) PO SCH (20:05)
--- NOTE | 2020-12-06 07:49 | IPNPDOC ---
Date Seen The patient was seen on 12/06/20. 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 lethargic but arousable. "I'm ok." no c/o sob, cp, still w slight cough . no fever or chills. OBJECTIVE: VITAL SIGNS: see below. GENERAL: lethargic, but arousable, pleasantly confused, cooperative, no distress this morning or use of respiratory accessory muscles. NECK: No JVD or thyromegaly. No cervical lymphadenopathy. HEENT: Moist mucous membranes. LUNGS: Diminished with coarse rhonchi, bilateral faint wheezes. HEART: S1 and S2, irregularly irregular, not tachycardic. ABDOMEN: Soft, nontender and nondistended. Positive bowel sounds. No rebound or guarding. No hepatosplenomegaly. EXTREMITIES: No cyanosis, clubbing or pitting edema. LABORATORY DATA/IMAGING STUDIES/MICROBIOLOGY: Have been reviewed, please see the chart. ASSESSMENT AND PLAN: This is an 89-year-old female with a history of diastolic congestive heart failure with preserved systolic function. She lives alone with daughter living next door, rheumatoid arthritis, hypertension, atrial fibrillation, depression, presented with shortness of breath, found to have congestive heart failure due to dietary indiscretion with increased salt intake as well as atrial fibrillation with RVR. IMPRESSION: 1. Acute on chronic diastolic congestive heart failure, preserved systolic ejection fraction. 2. Premature ventricular complexes secondary to electrolyte abnormalities, potassium to be kept greater than 4, magnesium of 2. No acute coronary syndrome or complaints of chest pain. 3. Atrial fibrillation with RVR, currently rate controlled o 4. Rheumatoid arthritis, on chronic methotrexate. 5. Contaminated blood cultures with Staph hominis and micrococcus luteus. 6. Anxiety/depression, 7. Hypertension, 8. Hyperlipidemia, PLAN: casualty underwriter, dnr, dni. prn casualty underwriter meds. hospice consulted. VS, I&O, 24H, Fishbone Vital Signs/I&O Vital Signs Date Time Temp Pulse Resp B/P (MAP) Pulse Ox O2 Delivery O2 Flow Rate FiO2 12/05/20 18:35 17 12/05/20 16:20 Room Air 12/05/20 08:00 2.0 12/05/20 07:31 97.9 104 112/58 (76) 94 I&O- Last 24 Hours up to 6 AM 12/06/20 05:59 Intake Total 250 ml Output Total 1150 ml Balance -900 ml Laboratory Data Microbiology Microbiology 12/03/20 Gram Stain - Final, Complete 12/03/20 Sputum Culture - Final, Complete 12/03/20 Blood Culture - Preliminary, Resulted No Growth after 48 hours. All Specime... 12/03/20 Blood Culture - Preliminary, Resulted No Growth after 48 hours. All Specime... 11/30/20 Blood Culture - Final, Complete NO GROWTH AFTER 5 DAYS 11/30/20 Blood Culture - Final, Complete Staphylococcus Hominis Ssp Ulises Micrococcus Luteus STEWART GILLESPIE MD Dec 06, 2020 07:49
[2020-12-06] MEDS: MORPHINE 10MG/0.5ML ORAL CONCENTRATE SOLUTION U/D SL PRN ×2 (18:52→23:40)
[2020-12-06] MEDS: RAMELTEON 8 MG TAB (ROZEREM) PO SCH (20:07)
--- NOTE | 2020-12-07 12:31 | IPNPDOC ---
Date Seen The patient was seen on 12/07/20. Progress Note SUBJECTIVE: c/o sob, w/o chest pain. slight cough. wants no further treatment. "I'm okay. I don't want anything." OBJECTIVE: VITAL SIGNS: see below. GENERAL:mild distress 7-8 word conversational dyspnea NECK: + JVD or thyromegaly. No cervical lymphadenopathy. HEENT: Moist mucous membranes. LUNGS: Diminished with coarse rhonchi, bilateral faint wheezes. HEART: S1 and S2, irregularly irregular, not tachycardic. ABDOMEN: Soft, nontender and nondistended. Positive bowel sounds. No rebound or guarding. No hepatosplenomegaly. EXTREMITIES: No cyanosis, clubbing or pitting edema. LABORATORY DATA/IMAGING STUDIES/MICROBIOLOGY: Have been reviewed, please see the chart. ASSESSMENT AND PLAN: This is an 89-year-old female with a history of diastolic congestive heart failure with preserved systolic function. She lives alone with daughter living next door, rheumatoid arthritis, hypertension, atrial fibrillation, depression, presented with shortness of breath, found to have congestive heart failure due to dietary indiscretion with increased salt intake as well as atrial fibrillation with RVR. IMPRESSION: 1. Acute on chronic diastolic congestive heart failure, preserved systolic ejection fraction. 2. Premature ventricular complexes secondary to electrolyte abnormalities, potassium to be kept greater than 4, magnesium of 2. No acute coronary syndrome or complaints of chest pain. 3. Atrial fibrillation with RVR, currently rate controlled o 4. Rheumatoid arthritis, on chronic methotrexate. 5. Contaminated blood cultures with Staph hominis and micrococcus luteus. 6. Anxiety/depression, 7. Hypertension, 8. Hyperlipidemia, PLAN: machine baster, dnr, dni. prn machine baster meds. hospice consulted. awaiting hospice bed. VS, I&O, 24H, Fishbone Vital Signs/I&O Vital Signs Date Time Temp Pulse Resp B/P (MAP) Pulse Ox O2 Delivery O2 Flow Rate FiO2 12/05/20 18:35 17 12/05/20 16:20 Room Air 12/05/20 08:00 2.0 12/05/20 07:31 97.9 104 112/58 (76) 94 I&O- Last 24 Hours up to 6 AM 12/07/20 06:00 Intake Total 260 ml Balance 260 ml Laboratory Data Microbiology Microbiology 12/03/20 Gram Stain - Final, Complete 12/03/20 Sputum Culture - Final, Complete 12/03/20 Blood Culture - Preliminary, Resulted No Growth after 72 hours. All specime... 12/03/20 Blood Culture - Preliminary, Resulted No Growth after 72 hours. All specime... 11/30/20 Blood Culture - Final, Complete NO GROWTH AFTER 5 DAYS 11/30/20 Blood Culture - Final, Complete Staphylococcus Hominis Ssp Ulises Micrococcus Luteus STEWART GILLESPIE MD Dec 07, 2020 12:31
[2020-12-07] MEDS: MORPHINE 10MG/0.5ML ORAL CONCENTRATE SOLUTION U/D SL PRN ×3 (14:54→21:04)
[2020-12-07] MEDS: SCOPOLAMINE 1MG TRANSDERMAL PATCH TOP SCH (18:15)
[2020-12-07] MEDS: RAMELTEON 8 MG TAB (ROZEREM) PO SCH (21:04)
[2020-12-08] MEDS: MORPHINE 10MG/0.5ML ORAL CONCENTRATE SOLUTION U/D SL PRN ×5 (00:43→16:43)
[2020-12-08] MEDS: LORazepam 1 MG TAB PO PRN ×2 (00:43→05:44)
[2020-12-08] MEDS: ATROPINE SULFATE 1% OP SOLN 2 ML BTL SL PRN ×2 (13:08→16:42)
[2020-12-08] MEDS: RAMELTEON 8 MG TAB (ROZEREM) PO SCH (20:39)
[2020-12-09] MEDS: MORPHINE 10MG/0.5ML ORAL CONCENTRATE SOLUTION U/D SL PRN ×4 (09:24→19:16)
[2020-12-09] MEDS: ATROPINE SULFATE 1% OP SOLN 2 ML BTL SL PRN (09:24)
[2020-12-09] MEDS: LORazepam 1 MG TAB PO PRN ×2 (12:41→19:15)
[2020-12-09] MEDS ORDERED: MORPHINE 10MG/0.5ML ORAL CONCENTRATE SOLUTION U/D SL PRN (19:35)
[2020-12-09] MEDS: RAMELTEON 8 MG TAB (ROZEREM) PO SCH (21:00)
[2020-12-09] MEDS ORDERED: LORazepam 2 MG/ML VIAL As Ordered ONE (22:09)
[2020-12-09] MEDS: LORazepam 2 MG/ML VIAL IV PRN (22:12)
[2020-12-10] MEDS ORDERED: LORazepam 2 MG/ML VIAL As Ordered ONE (06:56)
[2020-12-10] MEDS: LORazepam 2 MG/ML VIAL IV PRN ×2 (07:00→14:16)
[2020-12-10] MEDS ORDERED: MORPHINE SULF IN 0.9% NACL 100 MG in IV 1 EA IV SCH ×2 (12:00)
--- NOTE | 2020-12-10 17:43 | DS.PDOC ---
Discharge Summary General Date of Admission Nov 30, 2020 at 15:39 Date of Discharge 12/10/20 Discharge Summary PT WAS DNR/DNI/COMFORT MEASURES ONLY AND W FAMILY AT THE BEDSIDE DISCHARGE DIAGNOSES: ACUTE CHF DIASTOLIC EXACERBATION AFIB W RVR CONTAMINATED BLOOD CULTURE RHEUMATOID ARTHRITIS HYPERTENSION DYSLIPIDEMIA ANXIETY DEPRESSION DISCHARGE MEDS: NONE DISCHARGE INSTRUCTIONS: RELEASE BODY TO [facility] COURSE: This is an 89-year-old, do not resuscitate, do not intubate female who lives alone with daughter who lives next door admitted on 11/30/2020 with past medical history significant for diastolic congestive heart failure with preserved ejection fraction with echo showing ejection fraction of 65%, September,, hypertension, rheumatoid arthritis, A fib and depression, complained of shortness of breath, found to have salt intake indiscretion, found to have A fib with RVR and [id number] diastolic congestive heart failure exacerbation. Acute decompensated CHF with preserved systolic ejection fraction with EF of 65%, diastolic dysfunction. Patient was placed on a 2 gm sodium diet, strict I&Os, daily weights and has been negative balance. Her dry weight is usually 183 lb. 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 A fib with RVR currently controlled on bisoprolol and diltiazem. and was on Eliquis for anticoagulation for CVA prophylaxis. 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 Rheumatoid arthritis. was On chronic methotrexate. Contaminated blood culture with Staph hominis and micrococcus luteus. No antibiotics were needed. Anxiety/depression, was on fluoxetine. Hypertension, was on candesartan, diltiazem and bisoprolol Hyperlipidemia was on chronic atorvastatin. DISCHARGE PE: Vital signs: NONE General: UNRESPONSIVE Lungs: NO BREATH SOUNDS Heart: NO HEART SOUNDS Abdomen: NO BOWEL SOUNDS LABORATORY DATA: Imaging studies, microbiology: SEE CHART Chest CT: CHF on 12/03/2020. Microbiology notable for Staph hominis and micrococcus luteus on blood culture, one of two sets on 11/30, most likely contamination. TIME SPENT ON DISCHARGE: 30 MIN Vital Signs/I&Os Vital Signs Date Time Temp Pulse Resp B/P (MAP) Pulse Ox O2 Delivery O2 Flow Rate FiO2 12/07/20 18:45 18 12/07/20 15:24 Room Air 12/05/20 08:00 2.0 9/15/21 07:31 97.9 104 112/58 (86) 18 I&O- Last 24 Hours up to 6 AM 12/10/20 06:00 Intake Total 0 ml Balance 0 ml Microbiology Microbiology 12/03/20 Gram Stain - Final, Complete 12/03/20 Sputum Culture - Final, Complete 12/03/20 Blood Culture - Final, Complete NO GROWTH AFTER 5 DAYS 12/03/20 Blood Culture - Final, Complete NO GROWTH AFTER 5 DAYS 11/30/20 Blood Culture - Final, Complete NO GROWTH AFTER 5 DAYS 11/30/20 Blood Culture - Final, Complete Staphylococcus Hominis Ssp Ulises Micrococcus Luteus Discharge Medications Scheduled Apixaban (Eliquis) 5 Mg Tab, 5 MG PO BID, (Reported) Bisoprolol Fumarate (Bisoprolol Fumarate) 10 Mg Tab, 20 MG PO DAILY, (Reported) Candesartan Cilexetil (Candesartan Cilexetil) 8 Mg Tablet, 8 MG PO DAILY, (Reported) Cholecalciferol (Vitamin D3) (Vitamin D3) 1,000 Unit Tablet, 2,000 UNITS PO DAILY, (Reported) Diltiazem HCl (Diltiazem HCl) 30 Mg Tablet, 30 MG PO BID, (Reported) Folic Acid (Folic Acid) 1 Mg Tab, 1 MG PO DAILY, (Reported) Furosemide (Furosemide) 40 Mg Tablet, 40 MG PO DAILY, (Reported) Loratadine (Loratadine) 10 Mg Tablet, 10 MG PO DAILY, (Reported) Magnesium Oxide (Magnesium) 500 Mg Capsule, 500 MG PO DAILY, (Reported) Methotrexate Sodium (Methotrexate) 2.5 Mg Tab, 17.5 MG PO 1XWK, (Reported) TUESDAYS Montelukast Sodium (Singulair) 10 Mg Tab, 10 MG PO DAILY, (Reported) Multivitamins (Thera M Plus Tablet) 1 Tab Tab, 1 TAB PO DAILY, (Reported) Pantoprazole Sodium (Pantoprazole Sodium) 40 Mg Tablet.dr, 40 MG PO DAILY, (Reported) Paroxetine HCl (Paroxetine HCl) 20 Mg Tablet, 20 MG PO DAILY, (Reported) Scheduled PRN Albuterol Sulfate (Ventolin Hfa) 108 Mcg/Act Aer, 2 PUFF INH Q4H PRN for SOB/ WHEEZING, (Reported) Allergies Coded Allergies: No Known Allergies (Unverified , 01/01/19) STEWART GILLESPIE MD Dec 10, 2020 17:43
[2020-12-10] MEDS: SCOPOLAMINE 1MG TRANSDERMAL PATCH TOP SCH (18:00)
== END 2020-12-10 17:05 | disposition expired | DRG 308 ==
LOC: M ED 12:00 → M ED INP 15:39 → ENRESERVTM 23:06 → ENRESERVDT 23:06 → M PCU 12-01 00:49 → M MS5PR 12-05 15:25
PROVIDERS: ADMIT Internal Medicine; ATTEND General Practice
DX: I48.91 Unspecified atrial fibrillation (principal); I50.33 Acute on chronic diastolic (congestive) heart failure; I11.0 Hypertensive heart disease with heart failure; M06.9 Rheumatoid arthritis, unspecified; E78.5 Hyperlipidemia, unspecified; F41.9 Anxiety disorder, unspecified; F32.9 Major depressive disorder, single episode, unspecified; Z66 Do not resuscitate; Z51.5 Encounter for palliative care; Z90.79 Acquired absence of other genital organ(s); Z79.01 Long term (current) use of anticoagulants; Z79.899 Other long term (current) drug therapy; Z88.8 Allergy status to other drugs, medicaments and biological substances; Z20.822 Contact with and (suspected) exposure to COVID-19; Z87.891 Personal history of nicotine dependence; K21.9 Gastro-esophageal reflux disease without esophagitis